=== PATIENT | male | born 2000 | race Caucasian/White ===

== ENCOUNTER 2024-07-14 09:24 | Emergency (ER) | payer OTHER, SELFPAY ==
--- NOTE | 2024-07-14 09:26 | ED.URI ---
HPI - URI/Sore Throat General Chief Complaint: Upper Respiratory Infection Stated Complaint: headache/ sore throat Time Seen by Provider: 07/14/24 09:26 Source: patient Mode of arrival: ambulatory Limitations: no limitations History of Present Illness HPI Narrative: Edil is a 23-year-old male patient presenting to the clinic today with complaints of sore throat, runny nose, sinus congestion, sinus pain, and headache x1.5 weeks. He reports he is blowing out dark yellow nasal drainage. No fevers, chills, or body aches. MD elicited complaint: sore throat, rhinorrhea, nasal congestion and sinus pain Related Data Allergies Allergy/AdvReac Type Severity Reaction Status Date / Time No Known Allergies Allergy Verified 07/14/24 09:34 Review of Systems Review of Systems: Pertinent positives per HPI. Patient denies any fever, chills, rash, visual changes, dizziness, shortness of breath, chest pain, palpitations, nausea, vomiting, diarrhea, constipation, abdominal pain, or any urinary issues. PMFSH Surgical History Surgical History History of surgery on arm Family History Family History Grandparent Diabetes mellitus Hypertension Grandparent Diabetes mellitus Hypertension Heart disease Cerebrovascular accident Social History Social History Smoking status: Never smoker Lack of Transportation: No Lack of Food: Never True Current Housing: I Have Housing Concerned About Future Housing: No Difficulty Paying Gas/Electric Bills: No Difficulty Paying for Meds: No Currently Unemployed: No Education: High School Diploma/GED Difficulty w/ Childcare or Family Care: No Comments At the time of my signature, I reviewed and agree with the nursing past medical, surgical, social, and family history. There is no relevant family history pertinent to the patient complaint. Exam Narrative: General: Well-developed, well nourished, in no apparent distress Head: Normocephalic, atraumatic Eyes: Pupils equally round and reactive to light bilaterally, EOM intact, sclera and conjunctive clear, no discharge, lids normal Ears: TMs intact and congested, ear canals clear, no drainage, grossly hearing normal. Nose: Nares patent, thick yellow nasal discharge, severe inflammation, maxillary sinus tenderness. Mouth: Oral pharynx without lesions or masses, good dentition, MMM. Neck: Supple, trachea midline, no enlargement of anterior or posterior cervical nodes, no thyroid masses or goiter palpable. Cardio: Regular rate and rhythm, s1 and s2 normal, no murmur appreciated. Resp: Clear to auscultation bilaterally, no rhonchi, rales, wheezing or rubs Course Course Emergency Course: Portions of this record may have been created with voice recognition software. Level of Care: Express Care Visit Vital Signs Vital signs: Vital signs reviewed MDM - URI/Sore Throat MDM Narrative Medical decision making narrative: At the time of visit patient is resting comfortably on the exam table. Patient appears to be nontoxic. Plan: I suspect patient has bacterial rhinosinusitis. Prescription for Augmentin and prednisone was sent to the pharmacy. Supportive measures were discussed with the patient and they voiced understanding discharge instructions and agrees to treatment plan. Return precautions reviewed Differential Diagnosis Differential diagnosis: Likely upper respiratory infection, otitis media, sinusitis, viral infection, bronchitis, influenza, pharyngitis and other (COVID) Discharge Plan Discharge Clinical Impression: Acute bacterial rhinosinusitis Patient Disposition: Home, Self-Care Condition: Stable Instructions: Antibiotic Form, Rhinosinusitis (ED) Additional Instructions: Take prescription medications only as prescribed-Augmentin and prednisone Increase fluids and stay well hydrated Tylenol/motrin for pain/fever Flonase and OTC antihistamines as directed Vicks vapor rub to open sinuses Sinus rinses for congestion Cepacol spray, cough drops, throat lozenges, warm tea with honey/lemon, gargle salt water to soothe throat BRAT diet for diarrhea Clear liquids x 24 hours then advance as tolerated for nausea/vomiting Go to the ED if you develop a worsening in your condition- high fever not controlled by Tylenol or Motrin, dehydration, weakness, lethargy, shortness of breath, or chest pain. Follow up with your PCP in 3-5 days if symptoms persist. Patient Language: Gibraltarian Prescriptions: New prednisone 20 mg tablet 40 mg PO DAILY 5 Days Qty: 10 0RF amoxicillin-pot clavulanate 875-125 mg tablet 1 tablet PO Q12H 10 Days Qty: 20 0RF Follow-up/Referrals: UNKNOWN,DOCTOR [Non-Staff] - Time of Disposition: 09:38 Quality NIHSS Nursing Documentation ED NIHSS nursing documentation: reviewed/agree
[2024-07-14 09:33] VITALS: BP 119/73; PULSE 88; RESP 18; TEMP 37.1; O2SAT 100
--- OUTSIDE RECORDS SUMMARY | 2024-07-21 11:41 | XMS_ITS | Encounter Summary ---
Author Organization [facility] Address [address] [place] [address] Care Team Providers Care Energy And Sustainability Manager Name Role Phone Heath Bello MD Primary Care Provider [phone] Reason for Visit * Reason Comments Complete Physical Exam Encounter Details Date Type Department Care Team (Late st Contact Info) Description 05/01/2010 3:30 PM CDT Office Visit [facility] - Pediatrics [address] [place] [address] Elana Nogueira MD [address] [place] [address] Well child visit (Primary Dx) Social History Tobacco Use Types Packs/Day Years Used Date Smoking Tobacco: Never Assessed Sex and Gender Information Value Date Recorded Sex Assigned at Not on file Gender Identity Not on file Sexual Orientation Not on file documented as of this encounter Last Filed Vital Signs Vital Sign Reading Time Taken Comments Blood Pressure 92/58 05/01/2010 3:52 PM CDT Pulse - - Temperature 37.4 ??C (99.4 ??F) 05/01/2010 3:52 PM CD T Respiratory Rate - - Oxygen Saturation - - Inhaled Oxygen Concentration - - Weight 23.3 kg (51 lb 6.4 oz) 05/01/2010 3:52 PM CDT Height 125.1 cm (4' 1.25 ) 05/01/2010 3:52 PM CD T Body Mass Index 14.9 05/01/2010 3:52 PM CDT Body Mass Index Percentile 29.33% 05/01/2010 3:5 2 PM CDT Growth Chart: [facility] (Boys, 2-2 0 Years) documented in this encounter Patient Instructions * Patient Instructions* Elana Nogueira MD - 05/01/2010 4:26 PM CDT BP 92/58 Temp(Src) 99.4 ??F (Temporal artery) Wt 51 lb 6.4 oz (23.315 kg) 36.06% of growth percentile based on ebihqb-mau-fpk. 47.44% of growth percentile based on rdkbnfa-sdl-vhl. Normalized head circumference data available only for age 0 to 36 months. documented in this encounter Progress Notes * Elana Nogueira MD - 05/02/2010 11:13 PM CDT 7-10 Year Old Well Airport Operations Crew Member Visit Name: PRAKASH HANNA Age: 9 y.o. Accompanied By: Mother, Brother(s), Sister(s) Concerns: Chief Complaint Patient presents with ??? Complete Physical Exam Diet: Eats well balanced meals, good variety: Yes Limits foods high in fat or calorie content: Yes BM: Nl bowels movements: Yes Voiding: Any voiding difficulties: No School: Doing well in school. 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 Illnesses since our last visit include: none Allergies: No Known Allergies Medicines: No current outpatient prescriptions on file. PE: OBJECTIVE: BP 92/58 Temp(Src) 99.4 ??F (Temporal artery) Wt 51 lb 6.4 oz (23.315 kg) Normalized head circumference data available only for age 0 to 36 months. 36.06% of growth percentile based on ugkrtm-ykf-beu. 47.44% of growth percentile based on lomexyy-mny-lht. GENERAL: Alert, well developed, well nourished SKIN: No rash or lesions HEAD: Normocephalic EYES: PERRL, EOMI, funduscopic normal EARS: TM's WNL, canals clear NOSE: Passages clear MOUTH: OP clear, dentition appropriate, no oral lesions or excessive dental caries NECK: Thyroid not enlarged, lymph nodes WNL LUNGS: CTA bilaterally HEART: RRR without murmur ABD: Soft, NT,ND, NABS, no mass or HSM EXT: MAEW, FROM, no C/C/E, pulses 2+ NEURO: Alert, nl tone and reflexes for age, age appropriate gait : Nl male, age appropriate, no lesions, no hernia Impression / Plan: 1. Well child with normal growth and development. Oral and written anticipatory guidance provided including well child information, nutrition, well balanced diet, safety,and general well children's librarian. Limit TV and video/computer game time. Encourage routine exercise. Parent instructed to call if any questions, concerns, problems or other health issues. Plan per orders. Immunizations are up to date. Recommend flu vaccine, declined at this time. Immunizations benefits and risks discussed including site soreness, fever and allergic reaction. Next Appointment: 1 year documented in this encounter Plan of Treatment Not on file documented as of this encounter Visit Diagnoses Diagnosis Well child visit- Primary Routine infant or child health check documented in this encounter Care Teams Energy And Sustainability Manager Relationship Specialty Start Date End Date Heath Bello MD [address] [address] PCP - General 07/24/09 03/03/20 documented as of this encounter
--- OUTSIDE RECORDS SUMMARY | 2024-07-21 11:41 | XMS_ITS | Encounter Summary ---
Author Organization [facility] Address [facility] [place] [address] Care Team Providers Care People Manager Name Role Phone Heath Bello MD Primary Care Provider [phone] Reason for Visit * Reason Comments Complete Physical Exam 13 y/o check up School Physical Encounter Details Date Type Department Care Team (Late st Contact Info) Description 02/04/2014 1:00 PM CDT Office Visit [facility] Medical [facility] - Pediatrics [address] [place] [address] Elana Nogueira MD [address] [address] [place], [place] [id number] Well child visit (Primary Dx); Need for prophylactic vaccination with combined wimesqpslc-lqoiqrt-nr rtussis (DTP) vaccine; Need for prophylactic vaccination and inoculation against other specified disease Social History Tobacco Use Types Packs/Day Years Used Date Smoking Tobacco: Never Alcohol Use Standard Drinks/Week Comments Not Asked 0 (1 standard drink = 0.6 oz pur e alcohol) Sex and Gender Information Value Date Recorded Sex Assigned at Not on file Gender Identity Not on file Sexual Orientation Not on file documented as of this encounter Last Filed Vital Signs Vital Sign Reading Time Taken Comments Blood Pressure 90/60 02/04/2014 1:21 PM CDT Pulse - - Temperature 37.2 ??C (99 ??F) 02/04/2014 1:21 PM CDT Respiratory Rate - - Oxygen Saturation - - Inhaled Oxygen Concentration - - Weight 34.5 kg (76 lb 2 oz) 02/04/2014 1:21 PM C DT Height 144.8 cm (4' 9 ) 02/04/2014 1:21 PM CDT Body Mass Index 16.47 02/04/2014 1:21 PM CDT Body Mass Index Percentile 32.44% 02/04/2014 1:2 1 PM CDT Growth Chart: CDC (Boys, 2-2 0 Years) documented in this encounter Patient Instructions * Patient Instructions* Elana Nogueira MD - 02/04/2014 1:29 PM CDT BP 90/60 Temp(Src) 99 ??F (Temporal) Wt 34.53 kg (76 lb 2 oz) BMI 16.47 kg/m2 33%ile (Z=-0.44) based on CDC 2-20 Years bfhsbi-scg-hdr data using vitals from 02/04/2014. 47%ile (Z=-0.08) based on CDC 2-20 Years yfkwjof-eng-dey data using vitals from 02/04/2014. Normalized head circumference data available only for age 0 to 36 months. documented in this encounter Progress Notes * Elana Nogueira MD - 02/04/2014 6:33 PM CDT 11-12 Year Old Well Skates Operator Visit Name: Edil Hanna Age: 13 y.o. Accompanied By: Mother, Brother(s), Sister(s) Concerns: Chief Complaint Patient presents with ??? Complete Physical Exam 13 y/o check up ??? 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 Illnesses since our last visit include: none Allergies: No Known Allergies Medicines: No current outpatient prescriptions on file. No current facility-administered medications for this visit. PE: OBJECTIVE: BP 90/60 Temp(Src) 99 ??F (Temporal) Wt 34.53 kg (76 lb 2 oz) BMI 16.47 kg/m2 33%ile (Z=-0.44) based on CDC 2-20 Years ivzheq-dij-bos data using vitals from 02/04/2014. 47%ile (Z=-0.08) based on CDC 2-20 Years dxtdqqo-vsq-wdi data using vitals from 02/04/2014. GENERAL: Alert, well developed, well nourished SKIN: [...] EXT: MAEW, FROM, no C/C/E, pulses 2+ BACK: No scoliosis NEURO: Alert, nl tone and reflexes for age, age appropriate gait : Nl male, age appropriate, no lesions, no hernia, Aidan II Impression / Plan: 1. Well child with normal growth and development. Oral and written anticipatory guidance provided including well child information, nutrition, well balanced diet, safety,and general well children's lunchroom supervisor. Limit TV and video/computer game time. Encourage routine exercise. Parent instructed to call if any questions, concerns, problems or other health issues. Plan per orders. Tdap, Menactra Immunizations benefits and risks discussed including site soreness, fever and allergic reaction. Next Appointment: 1 year * Galina Murillo MA - 02/04/2014 1:23 PM CDT Has your child experienced any of the following symptoms in the past year: Productive cough for more than 3 weeks no Coughing up blood no Unexplained weight loss no Fever, chills, or night sweats for no known reason no Persistent shortness of breath no Unexplained fatigue or tiredness no Chest pain no Has your child had contact with anyone with active tuberculosis disease in the past year? no Has your child been outside of the country within the past year? no If so, where? Is your child required to have a TB skin test? no If so, by whom? documented in this encounter Plan of Treatment Not on file documented as of this encounter Visit Diagnoses Diagnosis Well child visit- Primary Routine infant or child health check Need for prophylactic vaccination with combined aepzziszkj-fetwolz-bazroetyn (DTP) vaccine Need for prophylactic vaccination and inoculation against other specified disease documented in this encounter Care Teams People Manager Relationship Specialty Start Date End Date Heath Bello MD [address] [facility] [place] [id number] PCP - General 07/24/09 03/03/20 documented as of this encounter
--- OUTSIDE RECORDS SUMMARY | 2024-07-21 11:41 | XMS_ITS | Encounter Summary ---
Author Organization [facility] Address [address] [facility] [place] [address] Care Team Providers Care Template Layout Worker Name Role Phone Heath Bello MD Primary Care Provider [phone] Encounter Details Date Type Department Care Team (Latest Contact Info) Description 07/25/2009 12:01 AM VISUAL COORDINATOR - 07/25/2009 11:59 PM [facility] Hospital Encounter CG DEFAULT [address] [facility] [place] [address] Danny Agarwal MD [address] [place] [address] [address] [place] [address] Orthopedics Discharge Disposition: Home or Self Care Social History Tobacco Use Types Packs/Day Years Used Date Smoking Tobacco: Never Assessed Sex and Gender Information Value Date Recorded Sex Assigned at Not on file Gender Identity Not on file Sexual Orientation Not on file documented as of this encounter Progress Notes * Vinicius Contreras MD - 07/25/2009 12:00 AM [facility] Pediatric Orthopaedic Consultation Edil is a 8-year-old male who approximately 4 weeks ago underwent closed reduction and percutaneouspinning of a left supracondylar humerus fracture. He was placed into a long-arm cast and has been doing well since then. He presents back today with no numbness, tingling, fevers or chills for examination and cast removal. PHYSICAL EXAMINATION: Cast was removed. His skin was intact. The pins were in good condition. The pins were removed without any complication. They were placed into a sterile dressing. He has positive AIN PIN. He can flex and extend about the wrist and he has intact intrinsic muscles of the hand. He has no sensory deficit. He is a +2 radial ulnar pulse. X-RAYS: AP and lateral views of the left elbow. These were taken prior to removal and show the two K-wires with good fixation of the fracture. There is abundant fracture. Callus noted anteriorly and posteriorly. The alignment is excellent. ASSESSMENT AND PLAN: Four weeks status post closed reduction percutaneous pinning of left supracondylar humerus fracture. PLAN: At this time we removed the pins the patient was left out of a cast. He was placed into a sling andexplained that he should take it easy and not do any strenuous, physical activity. We did caution his mom that there is approximately a 6-month risk of refracture. We will plan on seeing him back in three weeks' time. At that time we had the AP and lateral views of the left elbow. I have personally seen and evaluated the above patient with the resident. I have discussed the results of the physical exam and all studies with the patient and family. I developed the above plan ofcare and discussed it with the patient. I have revised the above dictation and agree with the resident's assessment and plan of care. Dictated By: VINICIUS CONTRERAS MD Dictated For: DANNY AGARWAL MD Electronically Signed 10/25/2009 08:57:24 CDT CDM/MedQ JOB ID: [id number] cc: HEATH BELLO MD documented in this encounter Plan of Treatment Scheduled Orders Name Type Priority Associated Diagnoses Orde r Schedule XR ELBOW 2 VW LEFT Imaging Routine ONCE f or 1 Occurrences starting 07/25/2009 until 07/25/2009, 1 completed documented as of this encounter Procedures Procedure Name Priority Date/Time Associated Diagnosis Comments XR ELBOW LEFT 2VW Routine 07/25/2009 8:1 7 AM VISUAL COORDINATOR Closed Fracture of Supracondylar Humerus documented in this encounter Results * XR ELBOW 2 VW LEFT (07/25/2009 8:17 AM VISUAL COORDINATOR) Anatomical Region Laterality Modality Upper Extremity Other 07/25/2009 8:17 AM VISUAL COORDINATOR Narrative 07/25/2009 4:10 PM VISUAL COORDINATOR Exam- Left elbowS AP, lateral and oblique views History- Supracondylar humerus fracture Findings- The transcondylar distal humeral fracture is seen and the fixation pins remain place. Callus formation and periosteal reaction. The fracture fragments are in anatomical alignment. No soft tissue swelling is seen. Impression- Healing distal humeral fracture. Norberto Larson MD (resident). ? Reading Radiologist- NEGRITO HENDRICKS MD ? Releasing Radiologist- NEGRITO HENDRICKS MD ? Released Date Time- 07/25/09 1611 ? Marketing Communications Leader- STEFF LARSON MD ? ADM- RACHEL,DANNY S ?ATT- RACHELDANNY S ORD- RACHELDANNY S ?CON- PCP- HEATH BELLO ? SCP- Procedure Note Amari Hendricks MD - 07/25/2009 Exam- Left elbowS AP, lateral and oblique views History- Supracondylar humerus fracture Findings- The transcondylar distal humeral fracture is seen and the fixation pins remain place. Callus formation and periosteal reaction. The fracture fragments are in anatomical alignment. No soft tissue swelling is seen. Impression- Healing distal humeral fracture. Norberto Larson MD (resident). Reading Radiologist- NEGRITO HENDRICKS MD Releasing Radiologist- NEGRITO HENDRICKS MD Released Date Time- 07/25/09 1611 Marketing Communications Leader- STEFF LARSON MD - DANNY AGARWAL ATT- DANNY AGARWAL ORD- DANNY AGARWAL CON- PCP- HEATH BELLO SCP- Danny Agarwal MD DIAGNOSTIC IMAGING O RDERABLES documented in this encounter Visit Diagnoses Diagnosis Closed fracture of supracondylar humerus documented in this encounter Care Teams Template Layout Worker Relationship Specialty Start Date End Date Heath Bello MD [address] [place] [address] PCP - General 07/24/09 03/03/20 documented as of this encounter
--- OUTSIDE RECORDS SUMMARY | 2024-07-21 11:41 | XMS_ITS | Encounter Summary ---
Author Organization [facility] Address [address] [facility] [place] [address] Care Team Providers Care Regional Sales Director Name Role Phone Heath Bello MD Primary Care Provider [phone] Reason for Visit * Reason Comments Well Child Check 14 year Encounter Details Date Type Department Care Team (Late st Contact Info) Description 01/21/2015 2:30 PM CDT Office Visit [facility] Medical [facility] - Pediatrics [address] [facility] [address] [place] [address] Elana Nogueira MD [address] [facility] [address] [place] [address] Well child visit (Primary Dx); Atypical nevi Social History Tobacco Use Types Packs/Day Years [...] Sign Reading Time Taken Comments Blood Pressure 108/72 01/21/2015 2:40 PM CDT Pulse - - Temperature 36.7 ??C (98.1 ??F) 01/21/2015 2:40 PM CD T Respiratory Rate - - Oxygen Saturation - - Inhaled Oxygen Concentration - - Weight 40.9 kg (90 lb 3.2 oz) 01/21/2015 2:40 PM CDT Height 152.4 cm (5') 01/21/2015 2:40 PM CDT Body Mass Index 17.62 01/21/2015 2:40 PM CDT Body Mass Index Percentile 43.47% 01/21/2015 2:4 0 PM CDT Growth Chart: [facility] (Boys, 2-2 0 Years) documented in this encounter Patient Instructions * Patient Instructions* Massiel Bañuelos - 01/21/2015 2:41 PM CDT YOUR GROWING CHILD: 12 TO 14 YEARS Child???s Name: Edil Hanna Today???s Date: 01/21/2015 BP 108/72 mmHg Temp(Src) 98.1 ??F (Temporal) Wt 40.914 kg (90 lb 3.2 oz) BMI 17.62 kg/m2 Wt Readings from Last 1 Encounters: 01/21/15 40.914 kg (90 lb 3.2 oz) (44 %*, Z = -0.14) * Growth percentiles are based on CDC 2-20 Years data. 44%ile (Z=-0.14) based on CDC 2-20 Years xbaidl-uyk-kde data using vitals from 01/21/2015. Ht Readings from Last 1 Encounters: 01/21/15 1.524 m (5') (57 %*, Z = 0.16) * Growth percentiles are based on CDC 2-20 Years data. 57%ile (Z=0.16) based on CDC 2-20 Years dgckxjw-zlq-rpo data using vitals from 01/21/2015. IMMUNIZATIONS One of the best ways to insure continued good health for your child is through a program of regularimmunizations. Many contagious diseases have now been controlled by immunizations. We routinely immunize children at the time of their regular checkups. It is important for you to keep a record of all immunizations given. This information will be of value to you in the care of your child in the future. We will provide you a copy of your immunization record at each of your visits. WHAT TO EXPECT Talk with your child after school about their day, what they liked, what they didn???t like, and ifthey have any concerns. Talk with your child about what to do if they or someone they know is beingbullied. It???s a good idea to give your child chores to do around the house. Some age appropriate chores include: 1. Wash dishes 2. Prepare simple family meals 3. [place] leaves 4. Take the trash out for pick-up 5. Be responsible for feeding and watering the family pet 6. Keep bedroom and designates room in house clean 7. Vacuum individual rooms 8. Be responsible for homework Limit TV and electronic device time to 5-6 hours a day. Make sure that your child is active for at least 3 hours a day. Talk to your child about not using cigarettes, using drugs, or drinking alcohol. Make sure that youare familiar with the friends that they are spending time with. Teach your child the importance of delaying sexual behavior and make sure they know that they can ask you any questions that they make have about sexual behaviors. SAFETY POISON CONTROL: (PLEASE POST IN YOUR HOME OR ON YOUR PHONE) There are three ingredients for childhood injuries and accidents: the child, the object, and the environment in which the injury happens. Therefore, you must be aware of all three. Continue to be aware of poisonous hazards in your home, basement, and garage. Establish a plan for leaving the house in case of fire. Alert your children to be careful around strange animals, and to not bother any animal that is eating. Children should now know their name, address, and telephone number. Remind your child about not accepting rides or food from strangers. Helmets should be worn for anything that your child rides on that has wheels or could possibly fallout of or off of including but not limited to: bikes, skates, skate boards, scooters, horses, pogo sticks, etc. CAR SEATS Children should stay in a booster seat until adult belts fit correctly (usually when a child reaches about 4' 9 in height and is between 8 and 12 years of age). [place] law, effective March 07, 2006, says your child must be in a booster seat if they are ages 4 through 7 who weigh at least 40 pounds, unless they are 80 pounds or 4???9?? tall. BE SURE THE FAMILY RULE REGARDING CAR RESTRAINTS FOR ALL PASSENGERS IS ALWAYS OBEYED AND THAT YOUR CHILD IS IN AN APPROVED CAR SEAT. MAKE SURE YOUR CHILD IS SECURED IN THE CAR SEAT AND JUST IMPORTANTLY, MAKE SURE THE CAR SEAT IS PROPERLY SECURED IN THE CAR. DO NOT ALLOW ANYONE TO SMOKE AROUND YOUR CHILD. DIET Make sure that your child is eating breakfast in the morning preschool lead teacher. Encourage them to eat at least 3 servings of dairy a day and at least 5 serving of vegetables/fruits per day. Limit candy, soft drinks, and other high fat/calorie food and snacks. TEETH Your child should be established and receiving regular check-ups with a dentist. A daily routine ofbrushing at least twice a day needs to be in place by now. Frequently your child may need some supervision for proper technique. Also, your child should be flossing at least once daily. SLEEP Make sure that your child is getting at least 8-10 hours of sleep a night. Where can I go for more information? [place] [employer] ( ) www.aap.org, HealthyChildren.org www.healthychildren.org Website and free downloadable jonelle for smartphones: http://www.StreetOwl/ and http://www.Funambol/ documented in this encounter Progress Notes * Elana Nogueira MD - 01/21/2015 9:25 PM CDT 11-12 Year Old Well Airline Flight Attendant Visit Name: Edil Hanna Age: 14 y.o. Accompanied By: Mother, Father, Brother(s), Sister(s) Concerns: Chief Complaint Patient presents with ??? Well Child Check 14 year Diet: Eats well balanced meals, good variety: Yes Limits foods high in fat or calorie content: Yes BM: Nl bowels movements: Yes Voiding: Any voiding difficulties: No School: Grade in school: fall baseball Interim Illness: The patient returns today for routine well child care lead teacher. Illnesses since our last visit include: none Allergies: No Known Allergies Medicines: No current outpatient prescriptions on file. No current facility-administered medications for this visit. PE: OBJECTIVE: BP 108/72 mmHg Temp(Src) 98.1 ??F (Temporal) Wt 40.914 kg (90 lb 3.2 oz) BMI 17.62 kg/m2 44%ile (Z=-0.14) based on CDC 2-20 Years tkcypu-joq-bid data using vitals from 01/21/2015. 57%ile (Z=0.16) based on CDC 2-20 Years cdwsjej-fmi-dhk data using vitals from 01/21/2015. GENERAL: Alert, well developed, well nourished SKIN: cattered hyperpigment nevi on neck/trunk. 3 mm hyperpigmented flat nevi on neck with irregular discoloration HEAD: Normocephalic EYES: PERRL, EOMI, funduscopic normal [...] nutrition, well balanced diet, safety,and general well child care lead teacher. Limit TV and video/computer game time. Encourage routine exercise. Parent instructed to call if any questions, concerns, problems or other health issues. Plan per orders. Immunizations are up to date. Vision screen passed bilaterally. Immunizations benefits and risks discussed including site soreness, fever and allergic reaction. 2. Nevi - refer to Dermatology for evaluation. Mom to set up appointment. Next Appointment: 1 year documented in this encounter Plan of Treatment Not on file documented as of this encounter Goals Goal Patient Goal Type Associated Problems Recent Progress Patient-Stated? Author Use safety retraint in car Lifestyle On track( 019 1:39 PM CDT) No Massiel Quintanilla documented as of this encounter Visit Diagnoses Diagnosis Well child visit- Primary Routine or child health check Atypical nevi Benign neoplasm of skin, site unspecified documented in this encounter Care Teams Regional Sales Director Relationship Specialty Start Date End Date Heath Bello MD [address] [address] PCP - General 07/24/09 03/03/20 documented as of this encounter
--- OUTSIDE RECORDS SUMMARY | 2024-07-21 11:41 | XMS_ITS | Encounter Summary ---
Author Organization [facility] Address [address] [place] [address] Care Team Providers Care School Vocational Educator Name Role Phone Heath Bello MD Primary Care Provider [phone] Elana Nogueira MD Unavailable [phone] Encounter Details Date Type Department Care Team (Late st Contact Info) Description 07/02/2009 [facility] Outpatient Visit [address] [address] Danny Agarwal MD [address] [place] [address] 1 [place] [address] Social History Tobacco Use Types Packs/Day Years Used Date Smoking Tobacco: Never Assessed Sex and Gender Information Value Date Recorded Sex Assigned at Not on file Gender Identity Not on file Sexual Orientation Not on file documented as of this encounter Plan of Treatment Not on file documented as of this encounter Visit Diagnoses Not on filedocumented in this encounter Care Teams School Vocational Educator Relationship Specialty Start Date End Date Heath Bello MD [address] [address] PCP - General 07/24/09 03/03/20 Elana Nogueira MD [address] [place] [address] [address] [place] [address] PCP - Attributed-[employer] 06/10/19 0 documented as of this encounter
--- OUTSIDE RECORDS SUMMARY | 2024-07-21 11:41 | XMS_ITS | Encounter Summary ---
Author Organization [facility] Address [facility] [facility] [place] [address] Care Team Providers Care Internal Affairs Commander Name Role Phone Heath Bello MD Primary Care Provider [phone] Reason for Visit * Reason Comments Cough x 3-4 wks Runny Nose with yellow drainage Congestion x 3-4 wks Encounter Details Date Type Department Care Team (Late st Contact Info) Description 11/19/2011 3:15 PM CDT Office Visit [facility] Medical [facility] - Pediatrics [address] [place] [phone] Heath Bello MD [address] [address] Sinusitis acute (Primary Dx); Cough Social History Tobacco Use Types Packs/Day Years Used Date Smoking Tobacco: Never Assessed Sex and Gender Information Value Date Recorded Sex Assigned at Not on file Gender Identity Not on file Sexual Orientation Not on file documented as of this encounter Last Filed Vital Signs Vital Sign Reading Time Taken Comments Blood Pressure - - Pulse 99 11/19/2011 3:45 PM CDT Temperature 38.1 ??C (100.6 ??F) 11/19/2011 3:45 PM C DT Respiratory Rate - - Oxygen Saturation 98% 11/19/2011 3:45 PM CDT Inhaled Oxygen Concentration - - Weight 27.4 kg (60 lb 6 oz) 11/19/2011 3:45 PM C DT Height 132.7 cm (4' 4.25 ) 11/19/2011 3:45 PM CD T Body Mass Index 15.55 11/19/2011 3:45 PM CDT Body Mass Index Percentile 34.60% 11/19/2011 3:4 5 PM CDT Growth Chart: [facility] (Boys, 2-2 0 Years) documented in this encounter Progress Notes * Heath Bello MD - 11/19/2011 4:03 PM CDT Sick Visit Name: Edil Hanna Age: 11 y.o. Accompanied By: Mother CC: Chief Complaint Patient presents with ??? Cough x 3-4 wks ??? Runny Nose with yellow drainage ??? Congestion x 3-4 wks HPI: Cough and congestion, runny nose started early October. Was getting better and now worse . Worsened 2 wks ago and much worse x 1 wk. Frontal GUERRA. Yellow drainage. Hm=337.6 here. Cough is productivebut does not spit it out. Current Medications: Current Outpatient Prescriptions Medication Sig Dispense Refill ??? Ucsffjrdgrfsm-FG-IU-APAP (SUDAFED PE COLD/COUGH PO) ??? Acetaminophen (TYLENOL PO) Allergies: No Known Allergies PE: Pulse 99 Temp(Src) 100.6 ??F (Temporal) Wt 60 lb 6 oz (27.386 kg) BMI 15.55 kg/m2 General alert, cooperative, no distress Skin Skin color, texture, turgor normal. No rashes or lesions Head NCAT w/o lesions or tenderness Eyes/Ears sclera and conjunctiva clear bilateral TM's and external ear canals normal Nose/ Throat nose:purulent rhinorrhea, mucosal erythema and mucosal edema and congestion, throat: no erythema or exudates noted. Teeth and gums normal Neck supple, non-tender, with full ROM, and no lymphadenopathy Nodes no lymphadenopathy Heart regular rate and rhythm, S1, S2 normal, no murmur, click, rub or gallop Lungs clear to auscultation bilaterally Abdomen soft, non-tender, non distended, normal BS Extremities no cyanosis, edema Impression / Plan: 1. Sinusitis - Zithromax 300 mg po today then 150 mg po q d x 4 days. Symptomatic treatment, tylenol and/or ibuprofen as directed for weight and age prn, cool mist humidifier. Phenergan DM 1 tsp po q6 hours prn, DC if any side effects. Call if symptoms worsen, persist, or any signs or symptoms of r espiratory distress. DC any OTC cough/cold meds. documented in this encounter Plan of Treatment Not on file documented as of this encounter Visit Diagnoses Diagnosis Sinusitis acute- Primary Acute sinusitis, unspecified Cough documented in this encounter Care Teams Internal Affairs Commander Relationship Specialty Start Date End Date Heath Bello MD [address] [place] [address] PCP - General 07/24/09 03/03/20 documented as of this encounter
--- OUTSIDE RECORDS SUMMARY | 2024-07-21 11:41 | XMS_ITS | Encounter Summary ---
Author Organization [facility] Address [facility] [facility] [place] [address] Care Team Providers Care Diesel Retrofit Installer Name Role Phone Heath Bello MD Primary Care Provider [phone] Reason for Visit * Reason Onset Date Comments Ear Problem 01/18/2013 Encounter Details Date Type Department Care Team (Late st Contact Info) Description 01/18/2013 Telephone [facility] - Pediatrics [address] [place] [phone] Karuna Sparks, ATILIO-LASER BEAM COLOR SCANNER OPERATOR [address] [place] [address] Ear Problem Social History Tobacco Use Types Packs/Day Years Used Date Smoking Tobacco: Never Assessed Sex and Gender Information Value Date Recorded Sex Assigned at Not on file Gender Identity Not on file Sexual Orientation Not on file documented as of this encounter Miscellaneous Notes * Addendum Note - Apoorva Pimentel LPN - 01/19/2013 1:26 PM CDTAddended by: APOORVA PIMENTEL on: 01/19/2013 01:26 PM Modules accepted: Orders, Medications * Telephone Encounter - Apoorva Pimentel LPN - 01/19/2013 1:25 PM CDT Call received from [facility] pharmacy. Ciprodex has a $130 co pay. Mom requesting something that would becheaper. Verbal authorization given to change to Floxin otic. * Telephone Encounter - Justino Webb RN - 01/18/2013 9:50 AM CDT Mom states that pt was swimming all weekend, now c/o left ear pain, pt c/o pain when outer ear is touched. Advised sx consistent with swimmers ear. Per standing orders Ciprodex otic drops sent to pharmacy. Encouraged to call with persistent or worsening sx. documented in this encounter Plan of Treatment Not on file documented as of this encounter Visit Diagnoses Not on filedocumented in this encounter Care Teams Diesel Retrofit Installer Relationship Specialty Start Date End Date Heath Bello MD [address] [address] PCP - General 07/24/09 03/03/20 documented as of this encounter
--- OUTSIDE RECORDS SUMMARY | 2024-07-21 11:41 | XMS_ITS | Encounter Summary ---
Author Organization [facility] Address [address] [facility] [place] [address] Care Team Providers Care Piecer Up Name Role Phone Heath Bello MD Primary Care Provider [phone] Reason for Visit * Reason Onset Date Comments Behavioral Problem 01/26/2018 Encounter Details Date Type Department Care Team (Late st Contact Info) Description 01/26/2018 Telephone [facility] - Pediatrics [address] [place] [address] Elana Nogueira MD [address] [place] [address] [address] [place] [address] Behavioral Problem Social History Tobacco Use Types Packs/Day [...] encounter Miscellaneous Notes * Addendum Note - Heath Bello MD - 02/07/2018 5:33 PM CDTAddended by: HEATH BELLO on: 02/07/2018 05:33 PM Modules accepted: Orders * Telephone Encounter - Elana Nogueira MD - 01/31/2018 6:08 PM CDT Spoke with Mom, discussed in detail regarding school assessment for school difficulties. Patient appears to struggle most with attention span and anxiety. As explained to Mom, unsure if patient gets anxious and then looses his concentration or if unable to focus which then leads to anxiety. Since he struggles academically, would recommend starting medicine for ADD for one month to see if any better. Discussed potential side effects including decreased appetite, headache, abdominal pain, and mood lability. Mom agrees and would like to start patient on medicine. Family leaving for [place] in the morning for vacation. Will wait until February 08 to start patient on medicine. * Telephone Encounter - Kathy Machado RN - 01/26/2018 10:25 AM CDT Pt's mother e-mailed triage with a social-emotional screener report from his school. I have scannedinto chart for review. Please advise on the next step. Mom was hoping to discuss at his well child check, but her dad had urgent surgery and she couldn't be at the appointment. She said you can call her at [phone] or contact her anytime by e-mail at [email or web address] documented in this encounter Plan of Treatment Not on file documented as of this encounter Goals Goal Patient Goal Type Associated Problems Recent Progress Patient-Stated? Author Use safety retraint in car Lifestyle On track( 019 1:39 PM CDT) No Massiel Quintanilla documented as of this encounter Visit Diagnoses Not on filedocumented in this encounter Care Teams Piecer Up Relationship Specialty Start Date End Date Heath Bello MD [address] [address] PCP - General 07/24/09 03/03/20 documented as of this encounter
--- OUTSIDE RECORDS SUMMARY | 2024-07-21 11:41 | XMS_ITS | Clinical Summary ---
Author Organization [facility] Address [address] [place] [address] Care Team Providers Care Assisted Living Executive Director Name Role Phone Unavailable Primary Care Provider Unavailabl e Source Comments [facility],non-owned Affiliates and Associated Physician Practices is amultiple site organization consisting of ambulatory clinics and hospital sitesin [place], [place], [place] and [place]. This disclosure is being madepursuant to the Care Everywhere program and may not contain all information available regarding this patient. Last updated 18.[facility] Allergies No known active allergies Medications Be aware that medications may not be up to date on this document. Always verify current medications with the patient. No known medications Active Problems Problem Noted Date Diagnosed Date Screening for condition 01/04/2012 Overview (04/10/2015): Lipid Profile 01/04/12 TC 184 HDL 77 TRG 53 LDL 96 GLU 82 Well child visit 05/01/2010 Overview (02/07/2019): 9 y/o 05/01/10 11 y/o 01/04/12 13yo 02/04/14 14yo 01/21/ 15yo 02/10/16 16 yo 02/09/17 18 yr 02/07/19 Resolved Problems Problem Noted Date Diagnosed Date Resolved Date Fracture of fifth metacarpal bone of right hand 10/09/2014 03/24/2017 Overview (10/14/2014): 10/09/14 Nondisplaced metaphyseal fracture distal - [facility] - Referred to ortho AOM (acute otitis media) 08/14/2012 Overview (07/22/2016): 08/14/12 Bilateral (amox) 07/22/16 Bilateral (zithromax) Acute sinusitis 11/19/2011 11/20/2014 Overview (07/22/2016): 11/19/11 Zithromax 05/20/14 Zithromax Acute pharyngitis 08/31/2010 03/24/2017 Acute URI 08/31/2010 03/24/2017 Immunizations Name Administration Dates Next Due DTaP VACCINE IM (6wk-6yrs) 01/23/2007,,04/19/2003,02/08/2003, 2002 HEP A PEDS 2 DOSE 01/22/2008,01/23/2007 HEP B VACCINE, PED/ADOL 04/19/2003,2002, HIB BOOSTER 01/10/2004,04/19/2003,02/08/2003 ,2002 INFLUENZA VACCINE 05/20/2007,06/24/2006,06/01/20 04 MENINGOCOCCAL CONJUGATE (MCV4P) 02/07/2019,02/04 MMR 01/22/2008,09/30/2003 PNEUMOCOCCAL CONJ, PEDS 04/20/2004,04/19/2003,,2002 POLIO IPV 02/08/2007,01/23/2007,09/30/2003 ,2002 PPD 01/22/2008 TDAP (7yrs+) 02/04/2014 VARICELLA 01/22/2008,09/30/2003 Social History Tobacco Use Types Packs/Day Years Used Date Smoking Tobacco: Never Alcohol Use Standard Drinks/Week Comments Not Asked 0 (1 standard drink = 0.6 oz pur e alcohol) Sex and Gender Information Value Date Recorded Sex Assigned at Not on file Gender Identity Not on file Sexual Orientation Not on file Last Filed Vital Signs Vital Sign Reading Time Taken Comments Blood Pressure 96/56 02/07/2019 1:39 PM CDT Pulse 103 07/22/2016 12:19 PM OUTDOOR LANDSCAPE ARCHITECT Temperature 37.1 ??C (98.8 ??F) 02/07/2019 1:39 PM CD T Respiratory Rate - - Oxygen Saturation 97% 07/22/2016 12:19 PM OUTDOOR LANDSCAPE ARCHITECT Inhaled Oxygen Concentration - - Weight 64.9 kg (143 lb) 02/07/2019 1:39 PM CDT Height 174.1 cm (5' 8.54 ) 02/07/2019 1:39 PM CD T Body Mass Index 21.4 02/07/2019 1:39 PM CDT Plan of Treatment Health Maintenance Due Date Last Done Comments HIV SCREENING 2017 HPV VACCINE (1 - Male 3-dose series) 2017 MENINGOCOCCAL (Group B) VACC INE (1 of 2 - Standard) 2018 HEPATITIS C SCREENING 09/19/2020 DTAP/TDAP/TD VACCINES (7 - T d or Tdap) 02/05/2024 02/04/2014, 01/23/2007, 01/10/2004, Additional history exists COVID-19 VACCINE (1 - 2023-2 5 season) 2024 INFLUENZA VACCINE (#1) 2024 7, 06/24/2006, 06/01/2004 DEPRESSION SCREENING 07/11/2024 ZOSTER VACCINE (1 of 2) 2052 HEPATITIS B VACCINE Completed 04/19/2003, 2002, 2002 HIB VACCINE Completed 01/10/2004, 04/10, 02/08/2003, Additional history exists PNEUMOCOCCAL VACCINE Completed 04/20/2004, 04/19/2003, 02/08/2003, Additional history exists MENINGOCOCCAL VACCINE Completed 02/07/2019, 014 Goals Goal Patient Goal Type Associated Problems Recent Progress Patient-Stated? Author Use safety retraint in car Lifestyle On track( 019 1:39 PM CDT) Massiel Gaytan Edil Hanna Personal/Family Self 2000 [address]NA [address] [place] [id number]
--- OUTSIDE RECORDS SUMMARY | 2024-07-21 11:41 | XMS_ITS | Encounter Summary ---
Author Organization [facility] Address [facility] [facility] [place] [address] Care Team Providers Care Dispute Resolution Analyst Name Role Phone Heath Bello MD Primary Care Provider Reason for Visit * Reason Comments Well Child Check 15 yr Encounter Details Date Type Department Care Team (Late st Contact Info) Description 02/10/2016 2:00 PM CDT Office Visit [facility] Medical [facility] - Pediatrics [address] [place] [address] Elana Nogueira MD [address] [place] [address] Encounter for routine child health examination without abnormal findings (Primary Dx) Social History Tobacco Use Types [...] Sign Reading Time Taken Comments Blood Pressure 90/68 02/10/2016 2:04 PM CDT Pulse - - Temperature 37 ??C (98.6 ??F) 02/10/2016 2:04 PM CDT Respiratory Rate - - Oxygen Saturation - - Inhaled Oxygen Concentration - - Weight 51.6 kg (113 lb 12.8 oz) 02/10/2016 2:04 PM CDT Height 163.4 cm (5' 4.33 ) 02/10/2016 2:04 PM CD T Body Mass Index 19.33 02/10/2016 2:04 PM CDT Body Mass Index Percentile 59.35% 02/10/2016 2:0 4 PM CDT Growth Chart: [facility] (Boys, 2-2 0 Years) documented in this encounter Patient Instructions * Patient Instructions* Yasmine Graves - 02/10/2016 2:04 PM CDT YOUR GROWING CHILD: 12 TO 14 YEARS Child???s Name: Edil Hanna Today???s Date: 02/10/2016 BP 90/68 mmHg Temp(Src) 98.6 ??F (Temporal) Wt 51.619 kg (113 lb 12.8 oz) BMI 19.33 kg/m2 Wt Readings from Last 1 Encounters: 02/10/16 51.619 kg (113 lb 12.8 oz) (66 %*, Z = 0.40) * Growth percentiles are based on [facility] 2-20 Years data. 66%ile (Z=0.40) based on [facility] 2-20 Years ozffxv-cuu-onm data using vitals from 02/10/2016. Ht Readings from Last 1 Encounters: 02/10/16 1.634 m (5' 4.33 ) (71 %*, Z = 0.55) * Growth percentiles are based on [facility] 2-20 Years data. 71%ile (Z=0.55) based on [facility] 2-20 Years ctrizev-tbr-irb data using vitals from 02/10/2016. IMMUNIZATIONS One of the best ways to [...] dishes 2. Prepare simple family meals 3. [place] leaves 4. Take the trash out for [...] between 8 and 12 years of age). [place] and [place] law, effective March 07, 2006, says your [...] is eating breakfast in the morning preschool aide. Encourage them to eat at least 3 [...] Where can I go for more information? [employer] ( ) www.aap.org, HealthyChildren.org www.healthychildren.org Website and free downloadable jonelle for smartphones: http://www.Fashfix/ and http://www.[employer]Arc [employer]/ documented in this encounter Progress Notes * Elana Nogueira MD - 02/12/2016 7:33 AM CDT Adolescent Well Cytology Teacher Visit Name: Edil Hanna Age: 15 y.o. Accompanied By: Mother, Sister(s) Concerns: Chief Complaint Patient presents with ??? Well Child Check 15 yr Diet: Eats well balanced meals, good variety Yes Limits foods high in fat or calorie content Yes Interim Illness: The patient returns today for routine well child support agent. Illnesses since our last visit include: none Meds: No current outpatient prescriptions on file. No current facility-administered medications for this visit. Allergies: No Known Allergies Social History: Home: lives with their family Education: 8th Grade. Fall 2015 Activities: baseball Drugs: no alcohol use no tobacco use no caffeine use Drug use: Never Sex: not sexually active Psych: No concerns for depression or suicidal ideation OBJECTIVE: BP 90/68 mmHg Temp(Src) 98.6 ??F (Temporal) Wt 51.619 kg (113 lb 12.8 oz) BMI 19.33 kg/m2 No head circumference on file for this encounter. 66%ile (Z=0.40) based on CDC 2-20 Years ubrxoz-lbj-akd data using vitals from 02/10/2016. 71%ile (Z=0.55) based on CDC 2-20 Years nbxjhdk-jxm-ezy data using vitals from 02/10/2016. Physical Exam: GENERAL: Alert, well developed, well nourished SKIN: No rash or lesions HEAD: Normocephalic EYES: PERRL, EOMI, fundi grossly normal, red reflex bilat EARS: TM's WNL, canals clear NOSE: Passages clear MOUTH: OP clear, dentition appropriate, no oral lesions or excessive denatal caries NECK: Thyroid not enlarged, nodes WNL, no mass or torticollis LUNGS: CTA bilaterally HEART: RRR without murmur ABD: Soft, NT,ND, NABS, no mass or HSM EXT: MAEW, FROM, no C/C/E, pulses 2+ BACK: No scoliosis NEURO: Alert, nl tone and reflexes for age, age appropriate gait : Nl male phallus, testicles normal, no hernia or hydrocele Aidan III Impression / Plan: 1. Well child with normal growth and development. Oral and written anticipatory guidance provided including well child information, nutrition, well balanced diet, safety,and general well child support agent. Patient counseled regarding avoidance of alcohol, tobacco and drugs. Parent and patient instructed to call if any questions, concerns, problems or other health issues. Plan per orders. Immunizations are up to date. Immunizations benefits and risks discussed including site soreness, fever and allergic reaction. Next Appointment: 1 year * Yasmine Graves - 02/10/2016 2:05 PM CDT Edil Hanna is a 15 y.o. male here for 15 yr well child visit. documented in this encounter Plan of Treatment Not on file documented as of this encounter Goals Goal Patient Goal Type Associated Problems Recent Progress Patient-Stated? Author Use safety retraint in car Lifestyle On track( 019 1:39 PM CDT) No Massiel Quintanilla documented as of this encounter Visit Diagnoses Diagnosis Encounter for routine child health examination without abnormal findings- Primary Routine infant or child health check documented in this encounter Care Teams Dispute Resolution Analyst Relationship Specialty Start Date End Date Heath Bello MD [address] [address] PCP - General 07/24/09 03/03/20 documented as of this encounter
--- OUTSIDE RECORDS SUMMARY | 2024-07-21 11:41 | XMS_ITS | Encounter Summary ---
Author Organization [facility] Address [facility] [place] [address] Care Team Providers Care Cartridge Loader Name Role Phone Heath Bello MD Primary Care Provider [phone] Reason for Visit * Reason Comments Well Child Check 17Y Encounter Details Date Type Department Care Team (Late st Contact Info) Description 12/20/2017 1:45 PM CDT Office Visit [facility] Medical [facility] - Pediatrics [address] [place] [address] Elana Nogueira MD [address] [address] [place] [address] Well adolescent visit (Primary Dx); Nevus Social History Tobacco Use Types Packs/Day Years [...] Sign Reading Time Taken Comments Blood Pressure 120/76 12/20/2017 1:31 PM CDT Pulse - - Temperature 36.6 ??C (97.9 ??F) 12/20/2017 1:31 PM CD T Respiratory Rate - - Oxygen Saturation - - Inhaled Oxygen Concentration - - Weight 63 kg (139 lb) 12/20/2017 1:31 PM CDT Height 173.4 cm (5' 8.25 ) 12/20/2017 1:31 PM CD T Body Mass Index 20.98 12/20/2017 1:31 PM CDT Body Mass Index Percentile 63.25% 12/20/2017 1:3 1 PM CDT Growth Chart: [facility] (Boys, 2-2 0 Years) documented in this encounter Patient Instructions * Patient Instructions* Victor M Yara A - 12/20/2017 1:31 PM CDT YOUR GROWING CHILD: 15 TO 17 YEARS Child???s Name: Edil Hanna Today???s Date: 12/20/2017 BP 120/76 Temp 97.9 ??F (36.6 ??C) (Temporal) Ht 1.734 m (5' 8.25 ) Wt 63 kg (139 lb) BMI 20.98 kg/m2 Wt Readings from Last 1 Encounters: 12/20/17 63 kg (139 lb) (69 %, Z= 0.50)* * Growth percentiles are based on CDC 2-20 Years data. 69 %ile (Z= 0.50) based on CDC 2-20 Years mdqcye-gvs-zkc data using vitals from 12/20/2017. Ht Readings from Last 1 Encounters: 12/20/17 1.734 m (5' 8.25 ) (62 %, Z= 0.31)* * Growth percentiles are based on CDC 2-20 Years data. 62 %ile (Z= 0.31) based on CDC 2-20 Years ahzyazu-vyi-pqm data using vitals from 12/20/2017. IMMUNIZATIONS One of the best ways to [...] they or someone they know is beingbullied. Speak with your child about what they might want to do after high school, where they might want to go to college, and if they have a career in mind. It???s a good idea to give your child chores to do around the house. Some age appropriate chores include: 1. Wash dishes 2. Prepare simple family meals 3. [place] leaves 4. Take the trash out for pick-up 5. Be responsible for feeding and watering the family pet 6. Keep bedroom and designates room in house clean 7. Vacuum individual rooms 8. Be responsible for homework 9. Help younger siblings with their chores Limit TV and electronic device time to [...] boards, scooters, horses, pogo sticks, etc. CAR SAFETY Please speak with your child about the importance of car safety. Make use that they wear seat beltsat all times while driving or being a passenger. Also speak to them about cell phone usage while driving. The texts and phone calls can WAIT. [place] and [place] law, effective March 07, 2006, says your child must be in a booster seat if they are ages 4 through 7 who weigh at least 40 pounds, unless they are 80 pounds or 4???9?? tall. DO NOT ALLOW ANYONE TO SMOKE AROUND YOUR CHILD. DIET Make sure that your child is eating breakfast in the morning head school custodian. Encourage them to eat at least 3 [...] Where can I go for more information? [employer] Pediatrics ( ) www.aap.org, HealthyChildren.org www.healthychildren.org Website and free downloadable jonelle for smartphones: http://www.Picturelife/ and http://www.Ilesfay Technology [employer]/ documented in this encounter Progress Notes * Elana Nogueira MD - 12/20/2017 2:01 PM CDT Adolescent Well Appointment Clerk Visit Name: Edil Hanna Age: 17 y.o. Accompanied By: Father Concerns: Chief Complaint Patient presents with ??? Well Child Check 17Y mole on chin was removed by Canal Boat Operator, and now back again. Diet: Eats well balanced meals, good variety Yes Limits foods high in fat or calorie content Yes Interim Illness: The patient returns today for routine well child care centre manager. Illnesses since our last visit include: none Meds: No current outpatient prescriptions on file. No current facility-administered medications for this visit. Allergies: No Known Allergies Social History: Home: lives with their family Education: 10th Grade. Fall 2017 [employer] Activities: baseball Drugs: no alcohol use no tobacco use no caffeine use Drug use: Never Sex: not sexually active Psych: No concerns for depression or suicidal ideation OBJECTIVE: BP 120/76 Temp 97.9 ??F (36.6 ??C) (Temporal) Ht 1.734 m (5' 8.25 ) Wt 63 kg (139 lb) BMI 20.98 kg/m2 No head circumference on file for this encounter. 69 %ile (Z= 0.50) based on [facility] 2-20 Years lmcvvr-dxv-gme data using vitals from 12/20/2017. 62 %ile (Z= 0.31) based on CDC 2-20 Years rhcstfv-nlu-bub data using vitals from 12/20/2017. Physical Exam: GENERAL: Alert, well developed, well nourished SKIN: Facial acne, hyperpigmented nevus on neck and chin area HEAD: Normocephalic EYES: PERRL, EOMI, fundi grossly [...] normal, no hernia or hydrocele Aidan III and IV Impression / Plan: 1. Well adolescent with normal growth and development. Oral and written anticipatory guidance provided including well child information, nutrition, well balanced diet, safety,and general well child care centre manager. Patient counseled regarding avoidance of alcohol, tobacco and drugs. Parent and patient instructed to call if any questions, concerns, problems or other health issues. Plan per orders. Immunizations are up to date. Vision screen passed bilaterally. Immunizations benefits and risks discussed including site soreness, fever and allergic reaction. 2. Nevi - refer to dermatology to re-evaluate nevus on left chin. Encourage sunscreen. Next Appointment: 1 year documented in this encounter Plan of Treatment Not on file documented as of this encounter Goals Goal Patient Goal Type Associated Problems Recent Progress Patient-Stated? Author Use safety retraint in car Lifestyle On track( 019 1:39 PM CDT) No Massiel Quintanilla documented as of this encounter Visit Diagnoses Diagnosis Well adolescent visit- Primary Routine infant or child health check Nevus Benign neoplasm of skin, site unspecified documented in this encounter Care Teams Cartridge Loader Relationship Specialty Start Date End Date Heath Bello MD [address] [address] PCP - General 07/24/09 03/03/20 documented as of this encounter
--- OUTSIDE RECORDS SUMMARY | 2024-07-21 11:41 | XMS_ITS | Encounter Summary ---
Author Organization [facility] Address [facility] [facility] [place] [address] Care Team Providers Care Director Video Name Role Phone Heath Bello MD Primary Care Provider [phone] Reason for Visit * Reason Comments Complete Physical Exam Encounter Details Date Type Department Care Team (Late st Contact Info) Description 02/07/2019 1:45 PM CDT Office Visit [facility] Medical [facility] - Pediatrics [address] [place] [phone] Karuna Sparks APRN-PRINTING SALES REPRESENTATIVE [address] [place] [address] Encounter for well child visit at 18 years of age (Primary Dx); Need for vaccination Social History Tobacco Use Types Packs/Day Years [...] Pressure 96/56 02/07/2019 1:39 PM CDT Pulse - - Temperature 37.1 ??C (98.8 ??F) 02/07/2019 1:39 PM CD T Respiratory Rate - - Oxygen Saturation - - Inhaled Oxygen Concentration - - Weight 64.9 kg (143 lb) 02/07/2019 1:39 PM CDT Height 174.1 cm (5' 8.54 ) 02/07/2019 1:39 PM CD T Body Mass Index 21.4 02/07/2019 1:39 PM CDT Body Mass Index Percentile 58.36% 02/07/2019 1:3 9 PM CDT Growth Chart: [facility] (Boys, 2-2 0 Years) documented in this encounter Patient Instructions * Patient Instructions* Monty Morin - 02/07/2019 1:39 PM CDT YOUR GROWING CHILD: 15 TO 17 YEARS Child???s Name: Edil Hanna Today???s Date: 02/07/2019 BP 96/56 Temp 98.8 ??F (37.1 ??C) Ht 1.741 m (5' 8.54 ) Wt 64.9 kg (143 lb) BMI 21.4 kg/m2 Wt Readings from Last 1 Encounters: 02/07/19 64.9 kg (143 lb) (59 %, Z= 0.22)* * Growth percentiles are based on CDC 2-20 Years data. 59 %ile (Z= 0.22) based on CDC 2-20 Years hlhurw-xos-oza data using vitals from 02/07/2019. Ht Readings from Last 1 Encounters: 02/07/19 1.741 m (5' 8.54 ) (49 %, Z= -0.03)* * Growth percentiles are based on CDC 2-20 Years data. 49 %ile (Z= -0.03) based on CDC 2-20 Years rgjinzh-vch-zfb data using vitals from 02/07/2019. IMMUNIZATIONS One of the best ways to [...] dishes 2. Prepare simple family meals 3. [place] leaves 4. Take the trash out for [...] The texts and phone calls can WAIT. [place] and [place] law, effective March 07, 2006, says your child must be in a booster seat if they are ages 4 through 7 who weigh at least 40 pounds, unless they are 80 pounds or 4???9?? tall. DO NOT ALLOW ANYONE TO SMOKE AROUND YOUR CHILD. DIET Make sure that your child is eating breakfast in the morning middle school music teacher. Encourage them to eat at least [...] Where can I go for more information? [employer]s ( ) www.aap.org, HealthyChildren.org www.healthychildren.org Website and free downloadable jonelle for smartphones: http://www.Receptos/ and http://www.eMerge [employer] Solutions/ documented in this encounter Progress Notes * Karuna Sparks, GEOSCIENCES PROFESSOR-PRINTING SALES REPRESENTATIVE - 02/07/2019 1:45 PM CDT Adolescent Well Driller Multiple Spindle Visit Name: Edil Hanna Age: [age] year old Accompanied By: Mother Chief Complaint Patient presents with ??? Complete Physical Exam Concerns: none Diet: Eats well balanced meals, good variety Yes Limits foods high in fat or calorie content Yes Interim Illness: The patient returns today for routine well child welfare social worker. Illnesses since our last visit include: none Meds: Current Outpatient Prescriptions Medication Sig Dispense Refill ??? methylphenidate CR (CONCERTA) 27 MG tablet Take 1 tablet by mouth every morning (Patient not taking: Reported on 02/07/2019) 30 tablet 0 No current facility-administered medications for this visit. Allergies: No Known Allergies Social History: Home: lives with their family Education: 11th Grade. No teacher or parent concerns. and Doing well in school Activities: Baseball Drugs: no alcohol use no tobacco use Drug use: Never Sex: heterosexual, not sexually active Psych: No concerns for depression or suicidal ideation OBJECTIVE: BP 96/56 Temp 98.8 ??F (37.1 ??C) Ht 1.741 m (5' 8.54 ) Wt 64.9 kg (143 lb) BMI 21.4 kg/m2 Wt Readings from Last 3 Encounters: 02/07/19 64.9 kg (143 lb) (59 %, Z= 0.22)* 12/20/17 63 kg (139 lb) (69 %, Z= 0.50)* 03/24/17 59.1 kg (130 lb 3.2 oz) (69 %, Z= 0.50)* * Growth percentiles are based on CDC 2-20 Years data. Ht Readings from Last 3 Encounters: 02/07/19 1.741 m (5' 8.54 ) (49 %, Z= -0.03)* 12/20/17 1.734 m (5' 8.25 ) (62 %, Z= 0.31)* 02/09/17 1.715 m (5' 7.5 ) (74 %, Z= 0.64)* * Growth percentiles are based on CDC 2-20 Years data. 59 %ile (Z= 0.22) based on CDC 2-20 Years yalkrk-cxf-jaj data using vitals from 02/07/2019. 49 %ile (Z= -0.03) based on CDC 2-20 Years rzllnis-djq-jiv data using vitals from 02/07/2019. Body mass index is 21.4 kg/(m^2). Physical Exam: GENERAL: Alert, well developed, well nourished SKIN: No rash or lesions HEAD: Normocephalic EYES: PERRL, EOMI, fundi grossly normal, red reflex bilat EARS: TM's WNL, canals clear NOSE: Passages clear MOUTH: OP clear, dentition appropriate, no oral lesions or excessive dental caries NECK: Thyroid not enlarged, nodes WNL, no mass or torticollis LUNGS: CTA bilaterally HEART: RRR without murmur ABD: Soft, NT,ND, NABS, no mass or HSM EXT: MAEW, FROM, no C/C/E, pulses 2+ BACK: No scoliosis NEURO: Alert, nl tone and reflexes for age, age appropriate gait : Nl male phallus, testicles normal, no hernia or hydrocele Aidan Stage: III-IV Impression / Plan: 1. Well child with normal growth and development. Oral and written anticipatory guidance provided including well child information, nutrition, well balanced diet, safety,and general well child welfare social worker. Patient counseled regarding avoidance of alcohol, tobacco and drugs. Parent and patient instructed to call if any questions, concerns, problems or other health issues. 2. Acne - Followed by dermatology - Currently on Accutane. Follow up as scheduled. Plan per orders. Menactra #2 Immunizations benefits and risks discussed including site [...] this encounter Visit Diagnoses Diagnosis Encounter for well child visit at 18 years of age- Primary Need for vaccination Need for prophylactic vaccination and inoculation against unspecified single disease documented in this encounter Care Teams Director Video Relationship Specialty Start Date End Date Heath Bello MD [address] [address] PCP - General 07/24/09 03/03/20 documented as of this encounter
--- OUTSIDE RECORDS SUMMARY | 2024-07-21 11:41 | XMS_ITS | Encounter Summary ---
Author Organization [facility] Address [address] [place] [address] Care Team Providers Care Watch Case Polisher Name Role Phone Heath Bello MD Primary Care Provider [phone] Encounter Details Date Type Department Care Team (Latest Contact Info) Description 08/15/2009 12:01 AM MANAGER OF CLINICAL - 08/15/2009 11:59 PM [facility] Hospital Encounter CG DEFAULT [address] [place] [address] Veronica Ramos MD [address] [place] [address] [address] [place] [id number] Orthopedics Discharge Disposition: Home or Self Care Social History Tobacco Use Types Packs/Day Years Used Date Smoking Tobacco: Never Assessed Sex and Gender Information Value Date Recorded Sex Assigned at Not on file Gender Identity Not on file Sexual Orientation Not on file documented as of this encounter Progress Notes * Natanael Dewey - 08/15/2009 12:00 AM [facility] Pediatric Orthopaedic Consultation HISTORY: This patient is a 8-year-old male who is now 7 weeks status post closed reduction and percutaneous pinning of a left supracondylar humerus fracture. He has been out of his cast and the pins have beenout for about 3 weeks now. He reports that he has no problems. PHYSICAL EXAMINATION: The patient's elbow has no gross deformity and his pin sites are healed. He has full extension and lacks about 10-15 degrees of flexion. He has no pain with range of motion. RADIOGRAPHS: X-rays reveal excellent alignment of his fracture with abundant callus formation. ASSESSMENT: Healing left supracondylar humerus fracture. PLAN: At this time, the patient is doing very well. The mother was educated that he is still at an increased risk of refracture and we would like him to avoid organized sporting activities and PE for another 4 months. In that time, he will be 6 months out from treatment and we anticipate a full release at that point. We will see him back in 4 months time for repeat x-rays and clinical evaluation. I have personally seen and evaluated the above patient with the resident. I have discussed the results of the physical exam and all studies with the patient and family. I developed the above plan ofcare and discussed it with the patient. I have revised the above dictation and agree with the resident's assessment and plan of care. Dictated By: NATANAEL DEWEY MD Dictated For: VERONICA RAMOS MD Electronically Signed 08/19/2009 12:46:54 MANAGER OF CLINICAL DIANE/amrit JOB ID: [id number] cc: HEATH BELLO MD GER OF CLINICAL documented in this encounter Plan of Treatment Scheduled Orders Name Type Priority Associated Diagnoses Orde r Schedule XR ELBOW 2 VW LEFT Imaging Routine ONCE f or 1 Occurrences starting 08/15/2009 until 08/15/2009, 1 completed documented as of this encounter Procedures Procedure Name Priority Date/Time Associated Diagnosis Comments XR ELBOW LEFT 2VW Routine 08/15/2009 8:0 8 AM MANAGER OF CLINICAL Closed Fracture of Supracondylar Humerus documented in this encounter Results * XR ELBOW 2 VW LEFT (08/15/2009 8:08 AM MANAGER OF CLINICAL) Anatomical Region Laterality Modality Upper Extremity Other 08/15/2009 8:08 AM MANAGER OF CLINICAL Narrative 08/15/2009 4:01 PM MANAGER OF CLINICAL Exam- Left elbowS AP and lateral views History- Supracondylar fracture Findings- The securing pins have been removed. The alignment of the supracondylar fracture is near anatomic. Continued bone changes and healing are seen. There is no soft tissue swelling. Impression- Healing supracondylar fracture. Norberto Larson MD (resident). ? Reading RadiologistPaul NOONAN MD ? Releasing RadiologistPaul NOONAN MD ? Released Date Time- 08/15/09 1602 ? Diploma Pharmacy Technician- STEFF LARSON MD ? ADM- VERONICA RAMOS ?ATT- VERONICA RAMOS ORD- VERONICA RAMOS ?CON- PCP- HEATH BELLO ? SCP- Procedure Note Erum Noonan MD, MD - 08/15/2009 Exam- Left elbowS AP and lateral views History- Supracondylar fracture Findings- The securing pins have been removed. The alignment of the supracondylar fracture is near anatomic. Continued bone changes and healing are seen. There is no soft tissue swelling. Impression- Healing supracondylar fracture. Norberto Larson MD (resident). Reading Kristel NOONAN MD Releasing RadiologistPaul NOONAN MD Released Date Time- 08/15/09 1602 Diploma Pharmacy Technician- STEFF LARSON MD ADM- VERONICA RAMOS ATT- VERONICA RAMOS ORD- VERONICA RAMOS CON- PCP- HEATH BELLO SCP- Veronica Ramos MD DIAGNOSTIC IMAGING O YOLANDA documented in this encounter Visit Diagnoses Diagnosis Closed fracture of supracondylar humerus documented in this encounter Care Teams Watch Case Polisher Relationship Specialty Start Date End Date Heath Bello MD [address] [address] PCP - General 07/24/09 03/03/20 documented as of this encounter
--- OUTSIDE RECORDS SUMMARY | 2024-07-21 11:41 | XMS_ITS | Encounter Summary ---
Author Organization [facility] Address [facility] [facility] [place] [address] Care Team Providers Care Cash Surrender Calculator Name Role Phone Heath Bello MD Primary Care Provider [phone] Reason for Visit * Reason Comments Poison Yas [place] Exposure Encounter Details Date Type Department Care Team (Late st Contact Info) Description 03/24/2017 3:45 PM CDT Office Visit [facility] - Pediatrics [address] [place] [phone] Karuna Sparks, ATILIO-WELDING MACHINE OPERATOR THERMIT [address] [place] [address] Skin lesion (Primary Dx) Social History Tobacco Use Types [...] Taken Comments Blood Pressure - - Pulse - - Temperature 37.1 ??C (98.8 ??F) 03/24/2017 3:47 PM CD T Respiratory Rate - - Oxygen Saturation - - Inhaled Oxygen Concentration - - Weight 59.1 kg (130 lb 3.2 oz) 03/24/2017 3:47 P M CDT Height - - Body Mass Index - - documented in this encounter Patient Instructions * Patient Instructions* Karuna Sparks, COMPUTER NETWORK SUPPORT SPECIALIST-WELDING MACHINE OPERATOR THERMIT - 03/24/2017 3:56 PM CDT Images from the original note were not included. Impetigo WHAT YOU NEED TO KNOW: What is impetigo? Impetigo is a skin infection caused by bacteria. The infection can cause sores toform anywhere on your body. The sores develop watery or pus- filled blisters that break and form thick crusts. Impetigo is most common in children and spreads easily from person to person. How is impetigo diagnosed? Your healthcare provider will examine your sores. A sample of fluid fromone of your sores may show which bacteria is causing your infection. How is impetigo treated? Antibiotics treat the bacterial infection. Antibiotics may be given as a pill or cream. Wash your skin and gently remove any crusts before you apply the antibiotic cream. How do I prevent the spread of impetigo? ?? Avoid direct contact. You can spread impetigo if someone touches or uses something that touched your infected skin. You can also spread impetigo on your own body when you touch the area and then touch somewhere else. Keep the sores covered with gauze so you will not scratch or touch them. Keep your fingernails short. Your child may need to wear mittens so he does not scratch his sores. ?? Wash your hands often. Always wash your hands after you touch the infected area. Wash your handsbefore you touch food, your eyes, or other people. If no water is available, use an alcohol-based gel to clean your hands. ?? Wash household items. Do not share or reuse items that have come in contact with impetigo sores.Examples include bedding, towels, washcloths, and eating utensils. These items may be used again after they have been washed with hot water and soap. How do I clean my sores safely? Wash your skin sores with antibacterial soap and water. You may need to do this 2 to 3 times each day until the sores heal. If the area is crusted, gently wash the sores with gauze or a clean washcloth to remove the crust. Pat the area dry with a clean towel. Wash your hands, the washcloth, and the towel after you clean the area around the sores. When is it safe to return to work or school? You may return to work or school 48 hours after you start the antibiotic medicine. If your child has impetigo, tell his school or daycare center about theinfection. When should I seek immediate care? ?? You have painful, red, warm skin around the blisters. ?? Your face is swollen. ?? You urinate less than usual or there is blood in your urine. When should I contact my healthcare provider? ?? You have a fever. ?? The sores become more red, swollen, warm, or tender. ?? The sores do not start to heal after 3 days of treatment. ?? You have questions or concerns about your condition or care. CARE AGREEMENT: You have the right to help plan your care. Learn about your health condition and how it may be treated. Discuss treatment options with your caregivers to decide what care you want to receive. You always have the right to refuse treatment. The above information is an educational manager only. It is not intended as medical advice for individual conditions or treatments. Talk to your doctor, nurse or pharmacist before following any medical regimen to see if it is safe and effective for you. ?? 2016 [employer]. Information is for End User's use only and may not be sold, redistributed or otherwise used for commercial purposes. All illustrations and images included in CareNotes?? are the copyrighted property of [employer] or [employer]. documented in this encounter Progress Notes * Karuna Sparks APRN-CNP - 03/24/2017 3:50 PM CDT Sick Visit Name: Edil Hanna Age: 16 y.o. Accompanied By: Mother CC: Chief Complaint Patient presents with ??? Poison Yas [place] Exposure HPI: Edil is a 16 yr old male who is here today for evaluation of a skin lesion that he has on his right cheek. First noted it 2 days ago and thought it was a pimple. It began to spread and now has crusting. A friend of his was recently Dx with a staph infection on his hand/arm and is on abx. No fevers noted. It hurts when you touch it. No other illnesses. No cough, congestion, vomiting, or diarrh ea. Current Medications: No current outpatient prescriptions on file. No current facility-administered medications for this visit. Allergies: No Known Allergies PE: Temp 98.8 ??F (Temporal) Wt 59.1 kg (130 lb 3.2 oz) General alert, cooperative, no distress Skin 1.5 cm diameter erythematous skin lesion with honey colored crusting to right cheek. Eyes/Ears sclera and conjunctiva clear bilateral TM's and external ear canals normal Heart regular rate and rhythm, S1, S2 normal, no murmur, click, rub or gallop Lungs clear to auscultation bilaterally Extremities no cyanosis, edema Impression / Plan: 1. Skin lesion. Consistent with impetigo. Duricef 500 mg po BID x 10 days. Possible side effects discussed. Impetigo handout given. Encouraged to call if sxs persist or with any concerns. documented in this encounter Plan of Treatment Not on file documented as of this encounter Goals Goal Patient Goal Type Associated Problems Recent Progress Patient-Stated? Author Use safety retraint in car Lifestyle On track( 019 1:39 PM CDT) No Massiel Quintanilla documented as of this encounter Visit Diagnoses Diagnosis Skin lesion- Primary Unspecified disorder of skin and subcutaneous tissue documented in this encounter Care Teams Cash Surrender Calculator Relationship Specialty Start Date End Date Heath Bello MD [address] [facility] [address] [address] PCP - General 07/24/09 03/03/20 documented as of this encounter
--- OUTSIDE RECORDS SUMMARY | 2024-07-21 11:41 | XMS_ITS | Patient Health Summary ---
Author Organization [facility] Address [address] [place] [address] Care Team Providers Care Hospice Volunteer Name Role Phone Unavailable Primary Care Provider Unavailabl e Note from [facility],non-owned Affiliates and Associated Physician Practices is amultiple site organization consisting of ambulatory clinics and hospital sitesin [place], [place], [place] and [place]. This disclosure is being madepursuant to the Care Everywhere program and may not contain all information available regarding this patient. Last updated 18.[facility] Allergies No known active allergies Medications Be aware that medications may not be up to date on this document. Always verify current medications with the patient. No known medications Active Problems Problem Noted Date Diagnosed Date Screening for condition 01/04/2012 Well child visit 05/01/2010 Resolved Problems Problem Noted Date Diagnosed Date Resolved Date Fracture of fifth metacarpal bone of right hand 10/09/2014 03/24/2017 AOM (acute otitis media) 08/14/2012 Acute sinusitis 11/19/2011 11/20/2014 Acute pharyngitis 08/31/2010 03/24/2017 Acute URI 08/31/2010 03/24/2017 Immunizations * DTaP VACCINE IM (6wk-6yrs)(Given 01/23/2007, 01/10/2004, 04/19/2003, 02/08/2003, 2002) * HEP A PEDS 2 DOSE(Given 01/22/2008, 01/23/2007) * HEP B VACCINE, PED/ADOL(Given 04/19/2003, 2002, 2002) * HIB BOOSTER(Given 01/10/2004, 04/19/2003, 02/08/2003, 2002) * INFLUENZA VACCINE(Given 05/20/2007, 06/24/2006, 06/01/2004) * MENINGOCOCCAL CONJUGATE (MCV4P)(Given 02/07/2019, 02/04/2014) * MMR(Given 01/22/2008, 09/30/2003) * PNEUMOCOCCAL CONJ, PEDS(Given 04/20/2004, 04/19/2003, 02/08/2003, 2002) * POLIO IPV(Given 02/08/2007, 01/23/2007, 09/30/2003, 2002) * PPD(Given 01/22/2008) * TDAP (7yrs+)(Given 02/04/2014) * VARICELLA(Given 01/22/2008, 09/30/2003) Social History Tobacco Use Types Packs/Day Years [...] PM CDT Pulse 103 07/22/2016 12:19 PM FRIED CAKE MAKER Temperature 37.1 ??C (98.8 ??F) 02/07/2019 1:39 PM CD T Respiratory Rate - - Oxygen Saturation 97% 07/22/2016 12:19 PM FRIED CAKE MAKER Inhaled Oxygen Concentration - - Weight 64.9 kg (143 lb) 02/07/2019 1:39 PM CDT Height 174.1 cm (5' 8.54 ) 02/07/2019 1:39 PM CD T Body Mass Index 21.4 02/07/2019 1:39 PM CDT Procedures * INFLUENZA A+B - POINT OF CARE (AMB)(Performed 07/22/2016) Performed for Fever, unspecified fever cause * IMAGING/RADIOLOGY/XRAY RESULTS ORDER(Performed 10/09/2014) * INFLUENZA A+B - POINT OF CARE (AMB)(Performed 05/20/2014) Performed for Fever * IMAGING/RADIOLOGY/XRAY RESULTS ORDER(Performed 01/03/2013) * LIPID PROFILE+GLUCOSE - POINT OF CARE (AMB)(Performed 01/04/2012) Performed for Screening for lipoid disorders * INFLUENZA A+B - POINT OF CARE (AMB)(Performed 09/02/2011) Performed for Fever * CULTURE STREP GROUP A(Performed 09/02/2011) Performed for Fever * STREP A SCREEN - POINT OF CARE (AMB)(Performed 09/02/2011) Performed for Fever * STREP A SCREEN - POINT OF CARE (AMB)(Performed 08/31/2010) Performed for Acute pharyngitis * XR ELBOW LEFT 2VW(Performed 08/15/2009) Performed for Closed Fracture of Supracondylar Humerus * XR ELBOW LEFT 2VW(Performed 07/25/2009) Performed for Closed Fracture of Supracondylar Humerus * XR ELBOW LEFT 2VW(Performed 06/24/2009) Results * (ABNORMAL) INFLUENZA A+B - POINT OF CARE (AMB) (07/22/2016) Only the most recent of3 resultswithin the time period is included. Influenza A Antigen Rapid Negative Negative Influenza B Antigen Rapid Positive(A) Negative Influenza Internal Control present NEGATIVE - POSITIVE Influenza Lot Number [id number] Influenza Expiration Date 10/08/17 Other SPECIMEN FROM NASOPHARYNGEAL STRUCTURE / Unknown 07/22/2016 Karuna Sparks APRN-SECURITY FIELD SUPERVISOR LAB - POINT OF CA RE ORDERABLES * IMAGING/RADIOLOGY/XRAY RESULTS ORDER (10/09/2014) Only the most recent of2 resultswithin the time period is included. Anatomical Region Laterality Modality Other Scanned Document IMAGING * LIPID PROFILE+GLUCOSE - POINT OF CARE (AMB) (01/04/2012 2:57 PM CDT) QC Verified yes Yes Cholesterol POCT 184 >200 mg/dl HDL POCT 77 <40 - >60 mg/dL Triglycerides POCT 53 >130 mg/dL LDL 96 >130 mg/dl Non HDL Cholesterol POCT 107 >145 mg/dL Total Cholesterol/HDL Ratio POCT 2.4 >6.0 Glucose 82 >126 mg/dL BLOOD SPECIMEN / Unknown Heath Bello MD LAB - POINT OF CARE ORDERABLES * CULTURE STREP GROUP A (09/02/2011 3:08 PM FRIED CAKE MAKER) Beta-Strep Culture, Group A Only Negative [facility] ACCOUNT BILL Miscellaneous samples (specimen) ENTIRE THROAT (SURFACE REGION OF NECK) / Unknown 09/02/2011 3:08 PM FRIED CAKE MAKER 09/02/2011 10:21 PM FRIED CAKE MAKER Narrative Resulting Agency Comment [facility] [address] ??[facility] [phone] Karuna Sparks APRN-SECURITY FIELD SUPERVISOR LAB - MICROBIOLOG Y ORDERABLES [facility] ACCOUNT BILL * STREP A SCREEN - POINT OF CARE (AMB) (09/02/2011 3:07 PM FRIED CAKE MAKER) Only the most recent of2 resultswithin the time period is included. Strep A Rapid POCT Negative Negative Strep A Internal Control NEGATIVE - POSITIVE Throat swab (specimen) ENTIRE THROAT (SURFACE REGION OF NECK) / Unknown Karuna Sparks APRN-SECURITY FIELD SUPERVISOR LAB - POINT OF CA RE ORDERABLES * XR ELBOW 2 VW LEFT (08/15/2009 8:08 AM FRIED CAKE MAKER) Only the most recent of3 resultswithin the time period is included. Anatomical Region Laterality Modality Upper Extremity Other 08/15/2009 8:08 AM FRIED CAKE MAKER Narrative 08/15/2009 4:01 PM FRIED CAKE MAKER Exam- Left elbowS AP and lateral views History- Supracondylar fracture Findings- The securing pins have been removed. The alignment of the supracondylar fracture is near anatomic. Continued bone changes and healing are seen. There is no soft tissue swelling. Impression- Healing supracondylar fracture. Norberto Larson MD (resident). ? Reading Radiologist- NOÉ NOONAN MD ? Releasing Radiologist- NOÉ NOONAN MD ? Released Date Time- 08/15/09 1602 ? Wheelchair Driver- STEFF LARSON MD ? ADM- VERONICA RAMOS S ?ATT- VERONICA RAMOS S ORD- VERONICA RAMOS S ?CON- PCP- HEATH BELLO ? SCP- Procedure Note Noé Noonan MD, MD - 08/15/2009 Exam- Left elbowS AP and lateral views History- Supracondylar fracture Findings- The securing pins have been removed. The alignment of the supracondylar fracture is near anatomic. Continued bone changes and healing are seen. There is no soft tissue swelling. Impression- Healing supracondylar fracture. Norberto Larson MD (resident). Reading Radiologist- NOÉ NOONAN MD Releasing Radiologist- NOÉ NOONAN MD Released Date Time- 08/15/09 1602 Wheelchair Driver- STEFF LARSON MD ADM- VERONICA RAMOS ATT- VERONICA RAMOS ORD- VERONICA RAMOS CON- PCP- HEATH BELLO SCP- Veronica Ramos MD DIAGNOSTIC IMAGING O CECELIABLES
--- OUTSIDE RECORDS SUMMARY | 2024-07-21 11:41 | XMS_ITS | Encounter Summary ---
Author Organization [facility] Address [facility] [facility] [place] [address] Care Team Providers Care Want Ad Clerk Name Role Phone Heath Bello MD Primary Care Provider [phone] Reason for Visit * Reason Comments Well Child Check 16 year Encounter Details Date Type Department Care Team (Late st Contact Info) Description 02/09/2017 11:30 AM CDT Office Visit [facility] - Pediatrics [address] [place] [phone] Karuna Sparks, ATILIO-PRODUCTION LAPPING MACHINE OPERATOR [address] [place] [address] Well adolescent visit (Primary Dx) Social History Tobacco Use [...] Sign Reading Time Taken Comments Blood Pressure 111/70 02/09/2017 11:39 AM CDT Pulse - - Temperature 37.2 ??C (98.9 ??F) 02/09/2017 1 1:39 AM CDT Respiratory Rate - - Oxygen Saturation - - Inhaled Oxygen Concentration - - Weight 58.2 kg (128 lb 6.4 oz) 02/10/20 11:39 AM CDT Height 171.5 cm (5' 7.5 ) 02/09/2017 11 :39 AM CDT Body Mass Index 19.81 02/09/2017 11:39 AM CDT Body Mass Index Percentile 56.10% 02/09 11:39 AM CDT Growth Chart: [facility] (Boys, 2-2 0 Years) documented in this encounter Patient Instructions * Patient Instructions* Claudia Patel - 02/09/2017 11:40 AM CDT YOUR GROWING CHILD: 12 TO 14 YEARS Child???s Name: Edil Hanna Today???s Date: 02/09/2017 BP 111/70 Temp 98.9 ??F (Temporal) Ht 1.715 m (5' 7.5 ) Wt 58.2 kg (128 lb 6.4 oz) BMI 19.81 kg/m2 Wt Readings from Last 1 Encounters: 02/09/17 58.2 kg (128 lb 6.4 oz) (69 %, Z= 0.48)* * Growth percentiles are based on CDC 2-20 Years data. 69 %ile (Z= 0.48) based on CDC 2-20 Years yuxfby-gfr-yzf data using vitals from 02/09/2017. Ht Readings from Last 1 Encounters: 02/09/17 1.715 m (5' 7.5 ) (74 %, Z= 0.64)* * Growth percentiles are based on CDC 2-20 Years data. 74 %ile (Z= 0.64) based on CDC 2-20 Years cvcslhl-ghs-arc data using vitals from 02/09/2017. IMMUNIZATIONS One of the best ways to [...] dishes 2. Prepare simple family meals 3. [place] leaves 4. Take the trash out for [...] between 8 and 12 years of age). [place] and [place] law, effective March 07, 2006, says your [...] child is eating breakfast in the morning school lunch monitor. Encourage them to eat at least 3 [...] Where can I go for more information? [place] [employer] ( ) www.aap.org, HealthyChildren.org www.healthychildren.org Website and free downloadable jonelle for smartphones: http://www.[employer]/ and http://www.[employer]/ documented in this encounter Progress Notes * Karuna Sparks, ATILIO-PRODUCTION LAPPING MACHINE OPERATOR - 02/09/2017 11:50 AM CDT Adolescent Well Animal Anatomist Visit Name: Edil Hanna Age: 16 y.o. Accompanied By: Mother Chief Complaint Patient presents with ??? Well Child Check 16 year Concerns: None Diet: Eats well balanced meals, good variety Yes Limits foods high in fat or calorie content Yes CANDY: 07/22/16 Bilateral AOM Interim Illness: The patient returns today for routine well child care worker. Illnesses since our last visit include: None Meds: No current outpatient prescriptions on file. No current facility-administered medications for this visit. Allergies: No Known Allergies Social History: Home: lives with their family Education: 9th Grade. Doing well in school Activities: Basketball, Dirt bikes Drugs: no alcohol use no caffeine use no tobacco use Drug use: Never Sex: not sexually active and heterosexual, not sexually active Psych: No concerns for depression or suicidal ideation OBJECTIVE: BP 111/70 Temp 98.9 ??F (Temporal) Ht 1.715 m (5' 7.5 ) Wt 58.2 kg (128 lb 6.4 oz) BMI 19.81 kg/m2 Wt Readings from Last 3 Encounters: 02/09/17 58.2 kg (128 lb 6.4 oz) (69 %, Z= 0.48)* 07/22/16 55.5 kg (122 lb 6.4 oz) (70 %, Z= 0.52)* 02/10/16 51.6 kg (113 lb 12.8 oz) (66 %, Z= 0.40)* * Growth percentiles are based on CDC 2-20 Years data. Ht Readings from Last 3 Encounters: 02/09/17 1.715 m (5' 7.5 ) (74 %, Z= 0.64)* 02/10/16 1.634 m (5' 4.33 ) (71 %, Z= 0.55)* 01/21/15 1.524 m (5') (57 %, Z= 0.16)* * Growth percentiles are based on CDC 2-20 Years data. 69 %ile (Z= 0.48) based on CDC 2-20 Years ruwsaq-xst-ukc data using vitals from 02/09/2017. 74 %ile (Z= 0.64) based on CDC 2-20 Years ibtxswv-zqs-wrr data using vitals from 02/09/2017. Body mass index is 19.81 kg/(m^2). Physical Exam: GENERAL: Alert, well developed, [...] normal, no hernia or hydrocele Aidan Stage: IV Impression / Plan: 1. Well child with normal growth and development. Oral and written anticipatory guidance provided including well child information, nutrition, well balanced diet, safety,and general well child care worker. Patient counseled regarding avoidance of alcohol, tobacco and drugs. Parent and patient instructed to call if any questions, concerns, problems or other health issues. Plan per orders. Immunizations UTD Next Appointment: 1 year documented in this encounter Plan of Treatment Not on file documented as of this encounter Goals Goal Patient Goal Type Associated Problems Recent Progress Patient-Stated? Author Use safety retraint in car Lifestyle On track( 019 1:39 PM CDT) Massiel Gaytan documented as of this encounter Visit Diagnoses Diagnosis Well adolescent visit- Primary Routine infant or child health check documented in this encounter Care Teams Want Ad Clerk Relationship Specialty Start Date End Date Heath Bello MD [address] [address] PCP - General 07/24/09 03/03/20 documented as of this encounter
--- OUTSIDE RECORDS SUMMARY | 2024-07-21 11:41 | XMS_ITS | Encounter Summary ---
Author Organization [facility] Address [facility] [place] [address] Care Team Providers Care Infant And Toddler Teacher Name Role Phone Heath Bello MD Primary Care Provider Reason for Visit * Reason Comments Fever on and off, cough, c ongestion, sore throat, GUERRA, stomach upset, throwing up Encounter Details Date Type Department Care Team (Late st Contact Info) Description 09/02/2011 2:45 PM GOLF COURSE PATROLLER Office Visit [facility] - Pediatrics [address] [facility] [address] [place] [phone] Karuna Sparks, HAIR STYLIST-TRIAL COURT JUSTICE [address] [place] [phone] Viral syndrome (Primary Dx); Fever Social History Tobacco Use Types Packs/Day Years Used Date Smoking Tobacco: Never Assessed Sex and Gender Information Value Date Recorded Sex Assigned at Not on file Gender Identity Not on file Sexual Orientation Not on file documented as of this encounter Last Filed Vital Signs Vital Sign Reading Time Taken Comments Blood Pressure - - Pulse - - Temperature 39.4 ??C (103 ??F) 09/02/2011 2:49 PM GOLF COURSE PATROLLER Respiratory Rate - - Oxygen Saturation - - Inhaled Oxygen Concentration - - Weight 27 kg (59 lb 9.6 oz) 09/02/2011 2:[address] Height 132.1 cm (4' 4 ) 09/02/2011 2:49 PM GOLF COURSE PATROLLER Body Mass Index 15.5 09/02/2011 2:49 PM GOLF COURSE PATROLLER Body Mass Index Percentile 35.29% 09/02/2011 2:4 9 PM GOLF COURSE PATROLLER Growth Chart: [facility] (Boys, 2-2 0 Years) documented in this encounter Progress Notes * Karuna Sparks APRN - 09/02/2011 2:54 PM CST Sick Visit Name: Edil Hanna Age: 10 y.o. Accompanied By: Mother CC: Chief Complaint Patient presents with ??? Fever on and off, cough, congestion, sore throat, GUERRA, stomach upset, throwing up HPI: Low grade fever x 3-4 days ago. Cough and congestion x 4 days. Vomited 1 time, mostly mucous. Has also complained of stomach pain and GUERRA. Denies sore throat . Current Medications: No current outpatient prescriptions on file. Allergies: No Known Allergies PE: Temp(Src) 103 ??F (Temporal Artery) Wt 59 lb 9.6 oz (27.034 kg) BMI 15.50 kg/m2 General alert, cooperative, no distress, ill-appearing Skin Skin color, texture, turgor normal. No rashes or lesions Head NCAT w/o lesions or tenderness Eyes/Ears sclera and conjunctiva clear bilateral TM's and external ear canals normal Nose/ Throat nose:clear rhinorrhea, mucosal erythema and mucosal edema and congestion, throat: mild erythema and no erythema or exudates noted. Teeth and gums normal Neck supple, non-tender, with full ROM, and no lymphadenopathy Nodes no lymphadenopathy Heart regular rate and rhythm, S1, S2 normal, no murmur, click, rub or gallop Lungs clear to auscultation bilaterally Abdomen soft, non-tender, non distended, normal BS Extremities no cyanosis, edema Impression / Plan: 1. Viral syndrome. RSS neg. Will follow throat culture. Influenza A & B neg. Continue symptomatic care. Encourage fluid intake. Tylenol or ibuprofen dosed to weight as needed. Call if sxs persistor get worse. COURSE PATROLLER documented in this encounter Plan of Treatment Not on file documented as of this encounter Procedures Procedure Name Priority Date/Time Associated Diagnosis Comments INFLUENZA A+B - POINT OF CARE (AMB) Routine 09/02/2011 3:19 PM GOLF COURSE PATROLLER Fever CULTURE STREP GROUP A Routine 09/02/2011 3:08 PM GOLF COURSE PATROLLER Fever STREP A SCREEN - POINT OF CARE (AMB) Routine 09/02/2011 3:07 PM GOLF COURSE PATROLLER Fever documented in this encounter Results * INFLUENZA A+B - POINT OF CARE (AMB) (09/02/2011 3:19 PM GOLF COURSE PATROLLER) Influenza A Antigen Rapid Negative Negative Influenza B Antigen Rapid Negative Negative Influenza Internal Control NEGATIVE - POSITIVE Influenza Lot Number Influenza Expiration Date Nasopharyngeal swab (specimen) SPECIMEN FROM NASOPHARYNGEAL STRUCTURE / Unknown Karuna Sparks HAIR STYLIST-TRIAL COURT JUSTICE LAB - POINT OF CA RE ORDERABLES * CULTURE STREP GROUP A (09/02/2011 3:08 PM GOLF COURSE PATROLLER) Beta-Strep Culture, Group A Only Negative [facility] ACCOUNT BILL Miscellaneous samples (specimen) ENTIRE THROAT (SURFACE REGION OF NECK) / Unknown 09/02/2011 3:08 PM GOLF COURSE PATROLLER 09/02/2011 10:21 PM GOLF COURSE PATROLLER Narrative Resulting Agency Comment [facility] [address] ??[facility] [phone] Karuna Sparks HAIR STYLIST-TRIAL COURT JUSTICE LAB - MICROBIOLOG Y ORDERABLES [facility] ACCOUNT BILL * STREP A SCREEN - POINT OF CARE (AMB) (09/02/2011 3:07 PM GOLF COURSE PATROLLER) Strep A Rapid POCT Negative Negative Strep A Internal Control NEGATIVE - POSITIVE Throat swab (specimen) ENTIRE THROAT (SURFACE REGION OF NECK) / Unknown Karuna Sparks APRN-TRIAL COURT JUSTICE LAB - POINT OF CA RE ORDERABLES documented in this encounter Visit Diagnoses Diagnosis Viral syndrome- Primary Unspecified viral infection, in conditions classified elsewhere and of unspecified site Fever Fever, unspecified documented in this encounter Care Teams Infant And Toddler Teacher Relationship Specialty Start Date End Date Heath Bello MD [address] [place] [address] PCP - General 07/24/09 03/03/20 documented as of this encounter
--- OUTSIDE RECORDS SUMMARY | 2024-07-21 11:41 | XMS_ITS | Encounter Summary ---
Author Organization [facility] Address [address] [place] [address] Care Team Providers Care Collision Technician Name Role Phone Heath Bello MD Primary Care Provider [phone] Reason for Visit * Reason Onset Date Comments Ear Problem 01/03/2015 Encounter Details Date Type Department Care Team (Late st Contact Info) Description 01/03/2015 Telephone [facility] - Pediatrics [address] [place] [address] [place] [phone] Heath Bello MD [address] [address] Ear Problem Social History Tobacco Use Types Packs/Day Years Used Date Smoking Tobacco: Never Alcohol Use Standard Drinks/Week Comments Not Asked 0 (1 standard drink = 0.6 oz pur e alcohol) Sex and Gender Information Value Date Recorded Sex Assigned at Not on file Gender Identity Not on file Sexual Orientation Not on file documented as of this encounter Miscellaneous Notes * Telephone Encounter - Kathy Machado RN - 01/03/2015 6:17 PM CDT Pt's mother informed of Dr. Bello's recommendations. She verbalized understanding and agreement. * Telephone Encounter - Heath Bello MD - 01/03/2015 5:45 PM CDT Will treat for presumed Otitis Externa - Ciprodex otic gtts, 4 gtts into affected ear BID x 1 week.No submersion swimming x 1 week. Call if symptoms worsen or persist. * Telephone Encounter - Vashti Arenas RN - 01/03/2015 3:31 PM CDT Mom states 14 yr old has what she thinks is swimmer's ear, they have a pool, he has had it in the past a couple times, he c/o pain when she touches the earlobe, no fever, no cold symptoms. Mom is asking for ear drops for presumed swimmer's ear, please advise, thanks documented in this encounter Plan of Treatment Not on file documented as of this encounter Visit Diagnoses Diagnosis Otitis externa, unspecified laterality- Primary documented in this encounter Care Teams Collision Technician Relationship Specialty Start Date End Date Heath Bello MD [address] [address] PCP - General 07/24/09 03/03/20 documented as of this encounter
--- OUTSIDE RECORDS SUMMARY | 2024-07-21 11:41 | XMS_ITS | Encounter Summary ---
Author Organization [facility] Address [facility] [facility] [place] [address] Care Team Providers Care Docking Saw Operator Name Role Phone Heath Bello MD Primary Care Provider [phone] Reason for Visit * Reason Onset Date Comments Appointment 08/26/2018 Encounter Details Date Type Department Care Team (Late st Contact Info) Description 08/26/2018 Telephone [facility] - Pediatrics [address] [facility] [address] [place] [phone] Heath Bello MD [address] [address] Appointment Social History Tobacco Use Types Packs/Day Years Used Date Smoking Tobacco: Never Alcohol Use Standard Drinks/Week Comments Not Asked 0 (1 standard drink = 0.6 oz pur e alcohol) Sex and Gender Information Value Date Recorded Sex Assigned at Not on file Gender Identity Not on file Sexual Orientation Not on file documented as of this encounter Miscellaneous Notes * Telephone Encounter - Kelsey Phillips - 08/26/2018 8:04 AM CST Edil Hanna called and canceled their appointment Appointment Date: 08/26/18 Appointment Time: 10:00am Provider: Vannessa Sparks NP E MAKER documented in this encounter Plan of Treatment Not on file documented as of this encounter Goals Goal Patient Goal Type Associated Problems Recent Progress Patient-Stated? Author Use safety retraint in car Lifestyle On track( 019 1:39 PM CDT) No Massiel Quintanilla documented as of this encounter Visit Diagnoses Not on filedocumented in this encounter Care Teams Docking Saw Operator Relationship Specialty Start Date End Date Heath Bello MD [address] [address] PCP - General 07/24/09 03/03/20 documented as of this encounter
--- OUTSIDE RECORDS SUMMARY | 2024-07-21 11:41 | XMS_ITS | Encounter Summary ---
Author Organization [facility] Address [address] [place] [address] Care Team Providers Care Flight Test Supervisor Name Role Phone Heath Bello MD Primary Care Provider [phone] Reason for Visit * Reason Comments Cough Headache Fever Congestion Encounter Details Date Type Department Care Team (Late st Contact Info) Description 05/20/2014 4:15 PM NUCLEAR PLANT TECHNICAL ADVISOR Office Visit [facility] - Pediatrics [address] [place] [phone] Heath Bello MD [address] [address] Acute sinusitis (Primary Dx); Fever Social History Tobacco Use [...] Pressure - - Pulse - - Temperature 38 ??C (100.4 ??F) 05/20/2014 4:24 PM NUCLEAR PLANT TECHNICAL ADVISOR Respiratory Rate - - Oxygen Saturation 99% 05/20/2014 4:24 PM NUCLEAR PLANT TECHNICAL ADVISOR Inhaled Oxygen Concentration - - Weight 36.3 kg (80 lb) 05/20/2014 4:24 PM NUCLEAR PLANT TECHNICAL ADVISOR Height 147.3 cm (4' 10 ) 05/20/2014 4:24 PM NUCLEAR PLANT TECHNICAL ADVISOR Body Mass Index 16.72 05/20/2014 4:24 PM NUCLEAR PLANT TECHNICAL ADVISOR Body Mass Index Percentile 34.22% 05/20/2014 4:2 4 PM NUCLEAR PLANT TECHNICAL ADVISOR Growth Chart: [facility] (Boys, 2-2 0 Years) documented in this encounter Progress Notes * Heath Bello MD - 05/20/2014 4:57 PM CST Sick Visit Name: Edil Hanna Age: 13 y.o. Accompanied By: Mother CC: Chief Complaint Patient presents with ??? Cough ??? Headache ??? Fever ??? Congestion HPI: Sxs started ~1 wk ago. cough and runny nose Fever: Started yesterday. Kd=625. Runny nose: Thick Cough: Productive cough, chest congestions, sounds rattly, Congestion: Marked Breathing difficulties: no Vomiting: no Diarrhea: no Pain / Discomfort: ST. Skin / Rash: no Activity: nl Appetite: nl Fluid Intake: nl Treatments tried: Sudafed cough and cold, OTC, helps. ibuprofen Ill contacts: No known ill contacts but attends school Current Medications: No current outpatient prescriptions on file. No current facility-administered medications for this visit. Allergies: No Known Allergies PE: Temp(Src) 100.4 ??F (Temporal) Wt 36.288 kg (80 lb) BMI 16.72 kg/m2 General alert, cooperative, no distress Skin [...] ROM, and no lymphadenopathy Nodes no lymphadenopathy in cervical and supraclavicular chains Heart regular rate and rhythm, S1, S2 normal, no murmur, click, rub or gallop Lungs clear to auscultation bilaterally Abdomen soft, non-tender, non distended, normal BS, no HSM Extremities no cyanosis, edema Impression / Plan: 1. Sinusitis - POC IRON CARRIER Rapid Flu A/B negative. Zithromax 400 mg po today then 200 mg po q d x 4 days. Symptomatic treatment, tylenol and/or ibuprofen as directed for weight and age prn, cool mist humidifier. May use OTC cough/cold medication as directed. DC if any side effects. Call if symptoms worsen, persist, or any signs or symptoms of respiratory distress. EAR PLANT TECHNICAL ADVISOR * Rosalina Ortiz - 05/20/2014 4:24 PM CST Edil Hanna is a 13 y.o. male is here with his mother with cough, congestion, recent spike in fever, and generally not feeling well. EAR PLANT TECHNICAL ADVISOR documented in this encounter Plan of Treatment Not on file documented as of this encounter Procedures Procedure Name Priority Date/Time Associated Diagnosis Comments INFLUENZA A+B - POINT OF CARE (AMB) Routine 05/20/2014 Fever documented in this encounter Results * INFLUENZA A+B - POINT OF CARE (AMB) (05/20/2014) Influenza A Antigen Rapid Negative Negative Influenza B Antigen Rapid Negative Negative Influenza Internal Control NEGATIVE - POSITIVE Influenza Lot Number Influenza Expiration Date Nasopharyngeal swab (specimen) SPECIMEN FROM NASOPHARYNGEAL STRUCTURE / Unknown 05/20/2014 Heath Bello MD LAB - POINT OF CARE ORDERABLES documented in this encounter Visit Diagnoses Diagnosis Acute sinusitis- Primary Fever Fever, unspecified documented in this encounter Care Teams Flight Test Supervisor Relationship Specialty Start Date End Date Heath Bello MD [address] [place] [address] PCP - General 07/24/09 03/03/20 documented as of this encounter
--- OUTSIDE RECORDS SUMMARY | 2024-07-21 11:41 | XMS_ITS | Referral Summary ---
Author Organization [facility] Address [address] [place] [address] Care Team Providers Care Country Printer Apprentice Name Role Phone Unavailable Primary Care Provider Unavailabl e Source Comments [facility],non-owned Affiliates and Associated Physician Practices is amultiple site organization consisting of ambulatory clinics and hospital sitesin [place], [place], [place] and [place]. This disclosure is being madepursuant to the Care Everywhere program and may not contain all information available regarding this patient. Last updated 18.ENDOTRONIX Allergies No known active allergies Medications Be [...] PM CDT Pulse 103 07/22/2016 12:19 PM HISTORIOGRAPHER Temperature 37.1 ??C (98.8 ??F) 02/07/2019 1:39 PM CD T Respiratory Rate - - Oxygen Saturation 97% 07/22/2016 12:19 PM HISTORIOGRAPHER Inhaled Oxygen Concentration - - Weight 64.9 kg (143 lb) 02/07/2019 1:39 PM CDT Height 174.1 cm (5' 8.54 ) 02/07/2019 1:39 PM CD T Body Mass Index 21.4 02/07/2019 1:39 PM CDT Plan of Treatment Not on file Goals Goal Patient Goal Type Associated Problems Recent Progress Patient-Stated? Author Use safety retraint in car Lifestyle On track( 019 1:39 PM CDT) Massiel Gaytan Edil Hanna Personal/Family Self 2000 [place] [address] [place] [id number]
--- OUTSIDE RECORDS SUMMARY | 2024-07-21 11:41 | XMS_ITS | Encounter Summary ---
Author Organization [facility] Address [facility] [facility] [address] [place] [address] Care Team Providers Care A Class Lineman Name Role Phone Heath Bello MD Primary Care Provider [phone] Reason for Visit * Reason Comments Ear Pain Right ear Encounter Details Date Type Department Care Team (Late st Contact Info) Description 01/04/2015 11:15 AM CDT Office Visit [facility] - Pediatrics [address] [facility] [address] [place] [phone] Karuna Sparks, ATILIO-MAILROOM SUPERVISOR [address] [facility] [address] [place] [address] Otitis externa, right (Primary Dx) Social History Tobacco Use Types [...] - - Temperature 37.1 ??C (98.8 ??F) 01/04/2015 11:23 AM C DT Respiratory Rate - - Oxygen Saturation - - Inhaled Oxygen Concentration - - Weight 40.8 kg (90 lb) 01/04/2015 11:23 AM CDT Height 12.7 cm (5 ) 01/04/2015 11:23 AM CDT Body Mass Index 2531.08 01/04/2015 11:23 AM CDT Body Mass Index Percentile 100.00% 01/04/2015 11: 23 AM CDT Growth Chart: [facility] (Boys, 2-2 0 Years) documented in this encounter Progress Notes * Karuna Sparks APRN-CNP - 01/04/2015 11:26 AM CDT Sick Visit Name: Edil Hanna Age: 14 y.o. Accompanied By: Mother, Sister CC: Chief Complaint Patient presents with ??? Ear Pain Right ear HPI: Edil is a 14 yr old male who is here today for evaluation of right ear pain. Mother called theoffice yesterday and was Rx ciprodex for otitis externa. Mother concerned that he is still in pain and the gtt are not able to get in his ear. No cold sxs, vomiting, diarrhea, or rashes noted. Current Medications: Current Outpatient Prescriptions Medication Sig Dispense Refill ??? ciprofloxacin-dexamethasone (CIPRODEX) 0.3-0.1 % otic suspension Instill 4 Drops into left ear 2 times daily for 7 days Shake well before using. 7.5 mL 0 No current facility-administered medications for this visit. Allergies: No Known Allergies PE: Temp(Src) 98.8 ??F (Temporal) Wt 40.824 kg (90 lb) BMI 2531.09 kg/m2 General alert, cooperative, no distress Skin Skin color, texture, turgor normal. No rashes or lesions Head NCAT w/o lesions or tenderness Eyes/Ears sclera and conjunctiva clear bilateral TM's and left external ear canal normal, right external canal inflamed Nose/ Throat nose:normal, throat: no erythema or exudates noted. Teeth and gums normal Heart regular rate and rhythm, S1, S2 normal, no murmur, click, rub or gallop Lungs clear to auscultation bilaterally Extremities no cyanosis, edema Impression / Plan: 1. Otitis externa. Continue ciprodex gtt as ordered. Ibuprofen PRN for pain. Call the office on Tuesday if there is no improvement in sxs and will start oral abx. documented in this encounter Plan of Treatment Not on file documented as of this encounter Visit Diagnoses Diagnosis Otitis externa, right- Primary documented in this encounter Care Teams A Class Lineman Relationship Specialty Start Date End Date Heath Bello MD [address] [address] PCP - General 07/24/09 03/03/20 documented as of this encounter
--- OUTSIDE RECORDS SUMMARY | 2024-07-21 11:41 | XMS_ITS | Encounter Summary ---
Author Organization [facility] Address [facility] [place] [address] Care Team Providers Care Bi Data Architect Name Role Phone Heath Bello MD Primary Care Provider [phone] Reason for Visit * Reason Onset Date Comments Ear Problem 01/06/2015 Encounter Details Date Type Department Care Team (Late st Contact Info) Description 01/06/2015 Telephone [facility] - Pediatrics [address] [facility] [address] [place] [address] Karuna Sparks APRN-CNP [address] [facility] [place] [address] Ear Problem Social History Tobacco [...] encounter Miscellaneous Notes * Telephone Encounter - Vashti Arenas RN - 01/06/2015 11:11 AM CDT Mom verbalized understanding and agrees w/POC * Telephone Encounter - Karuna Sparks APRN-CNP - 01/06/2015 10:06 AM CDT Continue ciprodex gtt as ordered. Augmentin eprescribed. Call if sxs persist or with questions/concerns. * Telephone Encounter - Vashti Arenas RN - 01/06/2015 9:46 AM CDT Mom states 14 yr old Edil Hanna was seen in the office on Thursday 01/04, DX was [facility], Rxwas Ciprodex drops. Mom states he is still laying on the couch or in bed, she is giving ibuprofen around the clock for the pain. His sister who was seen for same thing is much better and acting her normal self. Mom states she is having trouble getting the drops in his ear because it is so painful. Also, in the past, Edil needed an oral antibiotic in this same situation and that is what she is asking for. Please advise, thanks documented in this encounter Plan of Treatment Not on file documented as of this encounter Visit Diagnoses Not on filedocumented in this encounter Care Teams Bi Data Architect Relationship Specialty Start Date End Date Heath Bello MD [address] [facility] [address] [address] PCP - General 07/24/09 03/03/20 documented as of this encounter
--- OUTSIDE RECORDS SUMMARY | 2024-07-21 11:41 | XMS_ITS | Encounter Summary ---
Author Organization [facility] Address [facility] [facility] [place] [address] Care Team Providers Care Plunket Nurse Name Role Phone Heath Bello MD Primary Care Provider [phone] Reason for Visit * Reason Comments Ear Pain both ears X 4 days Sore Throat Encounter Details Date Type Department Care Team (Late st Contact Info) Description 08/14/2012 7:00 PM PIGMENT PRESSER Office Visit [facility] Medical [facility] - Pediatrics [address] [facility] [address] [place] [phone] Karuna Sparks, ATILIO-CLINICAL LAB CLERK [address] [facility] [address] [place] [address] AOM (acute otitis media) (Primary Dx) Social History Tobacco Use Types Packs/Day Years Used Date Smoking Tobacco: Never Assessed Sex and Gender Information Value Date Recorded Sex Assigned at Not on file Gender Identity Not on file Sexual Orientation Not on file documented as of this encounter Last Filed Vital Signs Vital Sign Reading Time Taken Comments Blood Pressure - - Pulse - - Temperature 36.7 ??C (98.1 ??F) 08/14/2012 5:00 PM CS T Respiratory Rate - - Oxygen Saturation - - Inhaled Oxygen Concentration - - Weight 30 kg (66 lb 3.2 oz) 08/14/2012 5:[address] Height 136.5 cm (4' 5.75 ) 08/14/2012 5:00 PM CS T Body Mass Index 16.11 08/14/2012 5:00 PM PIGMENT PRESSER Body Mass Index Percentile 40.32% 08/14/2012 5:0 0 PM PIGMENT PRESSER Growth Chart: [facility] (Boys, 2-2 0 Years) documented in this encounter Progress Notes * Karuna Sparks APRN - 08/14/2012 5:06 PM CST Sick Visit Name: Edil Hanna Age: 11 y.o. Accompanied By: Mother CC: Chief Complaint Patient presents with ??? Ear Pain both ears X 4 days ??? Sore Throat HPI: Ear pain x 4 days. Worse today. No fevers noted. Also has sore throat. No cold sxs noted. Current Medications: Current Outpatient Prescriptions Medication Sig Dispense Refill ??? Acetaminophen (TYLENOL PO) Allergies: No Known Allergies PE: Temp(Src) 98.1 ??F (Temporal Artery) Wt 30.028 kg (66 lb 3.2 oz) BMI 16.11 kg/m2 General alert, cooperative, no distress Skin Skin color, texture, turgor normal. No rashes or lesions Head NCAT w/o lesions or tenderness Eyes/Ears sclera and conjunctiva clear right TM red, dull, left TM red, dull Nose/ Throat nose:normal, throat: no erythema or exudates noted. Teeth and gums normal Neck supple, non-tender, with full ROM, and no lymphadenopathy Nodes no lymphadenopathy Heart regular rate and rhythm, S1, S2 normal, no murmur, click, rub or gallop Lungs clear to auscultation bilaterally Abdomen soft, non-tender, non distended, normal BS Extremities no cyanosis, edema Impression / Plan: 1. AOM. amoxicillin 600 mg po BID x 10 days. Call if sxs persist or get worse. ENT PRESSER documented in this encounter Plan of Treatment Not on file documented as of this encounter Visit Diagnoses Diagnosis AOM (acute otitis media)- Primary Unspecified otitis media documented in this encounter Care Teams Plunket Nurse Relationship Specialty Start Date End Date Heath Bello MD [address] [place] [address] PCP - General 07/24/09 03/03/20 documented as of this encounter
--- OUTSIDE RECORDS SUMMARY | 2024-07-21 11:41 | XMS_ITS | Encounter Summary ---
Author Organization [facility] Address [facility] [place] [address] Care Team Providers Care Grain Drier Operator Name Role Phone Heath Bello MD Primary Care Provider [phone] Reason for Visit * Reason Comments Cold Symptoms since last week Fever x 4 days, up to 102. 6, with headache Sore Throat x 3 days Encounter Details Date Type Department Care Team (Late st Contact Info) Description 08/31/2010 4:15 PM KILN TRANSFER OPERATOR Office Visit [facility] Medical [facility] - Pediatrics [address] [facility] [address] [place] [address] Elana Nogueira MD [address] [facility] [address] [place] [address] Acute pharyngitis (Primary Dx); Acute URI Social History Tobacco Use Types Packs/Day Years Used Date Smoking Tobacco: Never Assessed Sex and Gender Information Value Date Recorded Sex Assigned at Not on file Gender Identity Not on file Sexual Orientation Not on file documented as of this encounter Last Filed Vital Signs Vital Sign Reading Time Taken Comments Blood Pressure - - Pulse - - Temperature 36.9 ??C (98.5 ??F) 08/31/2010 4:36 PM CS T Respiratory Rate - - Oxygen Saturation - - Inhaled Oxygen Concentration - - Weight 23.6 kg (52 lb) 08/31/2010 4:36 PM KILN TRANSFER OPERATOR Height 127.6 cm (4' 2.25 ) 08/31/2010 4:36 PM CS T Body Mass Index 14.48 08/31/2010 4:36 PM KILN TRANSFER OPERATOR Body Mass Index Percentile 17.03% 08/31/2010 4:3 6 PM KILN TRANSFER OPERATOR Growth Chart: [facility] (Boys, 2-2 0 Years) documented in this encounter Patient Instructions * Patient Instructions* Elana Nogueira MD - 08/31/2010 4:58 PM KILN TRANSFER OPERATOR Treat symptomatically with tylenol and ibuprofen. TRANSFER OPERATOR documented in this encounter Progress Notes * Elana Nogueira MD - 08/31/2010 10:20 PM CST Subjective: Chief Complaint Patient presents with ??? Cold Symptoms since last week ??? Fever x 4 days, up to 102.6, with headache ??? Sore Throat x 3 days History was provided by the mother. Edil Hanna is a 9 y.o. male here for evaluation of cold symptoms. Symptoms began 4 days ago, with unchanged course since that time. Associated symptoms include rhinorrhea (clear in color), nasal congestion, sore throat, and fever (max temp 102.6). Oral intake has been good, normal activity, and normal urine output. Mom denies cough, vomiting, diarrhea, or rash. No current outpatient prescriptions on file. No known drug allergies Objective: Temp(Src) 98.5 ??F (Temporal Artery) Wt 52 lb (23.587 kg) General: alert, cooperative, no distress HEENT: pharynx erythematous without exudate and nasal mucosa congested, clear rhinorrhea Neck: supple, symmetrical, trachea midline and no adenopathy. Lungs: clear to auscultation bilaterally Heart: regular rate and rhythm, S1, S2 normal, no murmur, click, rub or gallop Abdomen: soft without mass, non-tender, with normal bowel sounds Skin: Skin color, texture, turgor normal. No rashes or lesions Extremities: extremities normal, atraumatic, no cyanosis or edema Neurological: alert, oriented x 3, no defects noted in general exam. Office Visit on 08/31/10 STREP A SCREEN - POINT OF CARE (AMB) Component Value Range ??? Strep A Rapid NEG NEGATIVE - POSITVE ??? Strep A INTERNAL CONTROL NEGATIVE - POSITIVE Assessment: Upper respiratory infection/Acute pharyngitis - RSS negative, most likely viral. Plan: Treat symptomatically Instruction provided in the use of fluids, vaporizer, acetaminophen, and other OTC medication for symptom control. Extra fluids Analgesics as needed, dose reviewed. Follow up as needed should symptoms fail to improve. TRANSFER OPERATOR documented in this encounter Plan of Treatment Not on file documented as of this encounter Procedures Procedure Name Priority Date/Time Associated Diagnosis Comments STREP A SCREEN - POINT OF CARE (AMB) Routine 08/31/2010 5:05 PM KILN TRANSFER OPERATOR Acute pharyngitis documented in this encounter Results * STREP A SCREEN - POINT OF CARE (AMB) (08/31/2010 5:05 PM KILN TRANSFER OPERATOR) Strep A Rapid POCT NEG NEGATIVE - POSITVE Strep A Internal Control NEGATIVE - POSITIVE ENTIRE THROAT (SURFACE REGION OF NECK) / Unknown Elana Nogueira MD LAB - POINT OF CARE ORDERABLES documented in this encounter Visit Diagnoses Diagnosis Acute pharyngitis- Primary Acute URI Acute upper respiratory infections of unspecified site documented in this encounter Care Teams Grain Drier Operator Relationship Specialty Start Date End Date Heath Bello MD [address] [address] PCP - General 07/24/09 03/03/20 documented as of this encounter
--- OUTSIDE RECORDS SUMMARY | 2024-07-21 11:41 | XMS_ITS | Encounter Summary ---
Author Organization [facility] Address [address] [place] [address] Care Team Providers Care Electric Operator Name Role Phone Heath Bello MD Primary Care Provider Elana Nogueira MD Unavailable [phone] Encounter Details Date Type Department Care Team (Late st Contact Info) Description 06/23/2009 [facility] Outpatient Visit [address] [address] Danny Agarwal MD [address] [place] [address] 1 [place] [address] Social History Tobacco Use Types [...] on filedocumented in this encounter Care Teams Electric Operator Relationship Specialty Start Date End Date Heath Bello MD [address] [address] PCP - General 07/24/09 03/03/20 Elana Nogueira MD [address] [place] [address] [address] [place] [address] PCP - Attributed-[employer] 06/10/19 0 documented as of this encounter
--- OUTSIDE RECORDS SUMMARY | 2024-07-21 11:41 | XMS_ITS | Encounter Summary ---
Author Organization [facility] Address [facility] [facility] [place] [address] Care Team Providers Care International Trade Analyst Name Role Phone Heath Bello MD Primary Care Provider Reason for Visit * Reason Comments Complete Physical Exam 11 year old Encounter Details Date Type Department Care Team (Late st Contact Info) Description 01/04/2012 1:30 PM CDT Office Visit [facility] Medical [facility] - Pediatrics [address] [place] [phone] Heath Bello MD [address] [address] Well child visit (Primary Dx); Screening for lipoid disorders Social History Tobacco Use Types Packs/Day Years Used Date Smoking Tobacco: Never Assessed Sex and Gender Information Value Date Recorded Sex Assigned at Not on file Gender Identity Not on file Sexual Orientation Not on file documented as of this encounter Last Filed Vital Signs Vital Sign Reading Time Taken Comments Blood Pressure 98/56 01/04/2012 1:51 PM CDT Pulse - - Temperature 36.8 ??C (98.3 ??F) 01/04/2012 1:51 PM CD T Respiratory Rate - - Oxygen Saturation - - Inhaled Oxygen Concentration - - Weight 28.1 kg (62 lb) 01/04/2012 1:51 PM CDT Height 134 cm (4' 4.75 ) 01/04/2012 1:51 PM CDT Body Mass Index 15.67 01/04/2012 1:51 PM CDT Body Mass Index Percentile 36.30% 01/04/2012 1:5 1 PM CDT Growth Chart: [facility] (Boys, 2-2 0 Years) documented in this encounter Patient Instructions * Patient Instructions* Heath Bello MD - 01/04/2012 1:55 PM CDT Today's Percentiles 39.12% of growth percentile based on [id number]. 43.89% of growth percentile based on qvlzbte-fti-mew. Today and Previous Weights and Heights Wt Readings from Last 3 Encounters: 01/04/12 62 lb (28.123 kg) (39.12%) 11/19/11 60 lb 6 oz (27.386 kg) (35.95%) 09/02/11 59 lb 9.6 oz (27.034 kg) (38.39%) Ht Readings from Last 3 Encounters: 01/04/12 4' 4.75 (1.34 m) (43.89%) 11/19/11 4' 4.25 (1.327 m) (39.77%) 09/02/11 4' 4 (1.321 m) (43.17%) documented in this encounter Progress Notes * Heath Bello MD - 01/04/2012 1:55 PM CDT 7-10 Year Old Well Clinical Asst Visit Name: Edil Hanna Age: 11 y.o. Accompanied By: Mother, Brother(s), Sister(s) Chief Complaint Patient presents with ??? Complete Physical Exam 11 year old Concerns: None Diet: Eats well balanced meals, good variety: Yes and No - a little picky at times Limits foods high in fat or calorie content: Yes and No BM: Nl bowels movements: Yes Voiding: Any voiding difficulties: No School: Doing well in school. and Grade in school: 4th in the Fall Does well Soccer, basketball and baseball Interim Illness: The patient returns today for routine well childbirth and infant care teacher. Illnesses since our last visit include: none Allergies: No Known Allergies Medicines: Current Outpatient Prescriptions Medication Sig Dispense Refill ??? Acetaminophen (TYLENOL PO) PE: OBJECTIVE: BP 98/56 Temp(Src) 98.3 ??F (Temporal Artery) Wt 62 lb (28.123 kg) BMI 15.67 kg/m2 Wt Readings from Last 3 Encounters: 01/04/12 62 lb (28.123 kg) (39.12%) 11/19/11 60 lb 6 oz (27.386 kg) (35.95%) 09/02/11 59 lb 9.6 oz (27.034 kg) (38.39%) Ht Readings from Last 3 Encounters: 01/04/12 4' 4.75 (1.34 m) (43.89%) 11/19/11 4' 4.25 (1.327 m) (39.77%) 09/02/11 4' 4 (1.321 m) (43.17%) 39.12% of growth percentile based on igteql-fni-wie. 43.89% of growth percentile based on tenhvnn-zsf-gsl. GENERAL: Alert, well developed, well nourished SKIN: No rash or lesions HEAD: Normocephalic EYES: PERRL, EOMI, funduscopic normal EARS: TM's WNL, canals clear NOSE: Passages clear MOUTH: OP clear, oral lesions, tonsils nl, dentition appropriate, no excessive dental caries NECK: Thyroid not enlarged, [...] nutrition, well balanced diet, safety,and general well childbirth and infant care teacher. Limit TV and video/computer game time. Encourage routine exercise. Parent instructed to call if any questions, concerns, problems or other health issues. Plan per orders. Immunizations UTD Immunizations benefits and risks discussed if applicable including site soreness, fever and allergic reaction. Next Appointment: 1 year documented in this encounter Plan of Treatment Not on file documented as of this encounter Procedures Procedure Name Priority Date/Time Associated Diagnosis Comments LIPID PROFILE+GLUCOSE - POINT OF CARE (AMB) Routine 01/04/2012 2:57 PM CDT Screening for lipoid disorders documented in this encounter Results * LIPID PROFILE+GLUCOSE - POINT OF CARE [...] documented in this encounter Visit Diagnoses Diagnosis Screening for lipoid disorders documented in this encounter Care Teams International Trade Analyst Relationship Specialty Start Date End Date Heath Bello MD [address] [place] [address] PCP - General 07/24/09 03/03/20 documented as of this encounter
--- OUTSIDE RECORDS SUMMARY | 2024-07-21 11:41 | XMS_ITS | Encounter Summary ---
Author Organization [facility] Address [address] [place] [address] Care Team Providers Care Acidity Tester Name Role Phone Heath Bello MD Primary Care Provider [phone] Reason for Visit * Reason Comments Injury Hand right hand injury Encounter Details Date Type Department Care Team (Latest Contact Info) Description 10/15/2014 2:30 PM CDT - 10/15/2014 11:59 PM CDT Hospital Encounter [facility] Pediatrics - Orthopedics [address] [place] [address] Lena Fritz MD Discharge Disposition: Home or Self Care Social [...] Pressure - - Pulse - - Temperature - - Respiratory Rate - - Oxygen Saturation - - Inhaled Oxygen Concentration - - Weight 39.5 kg (87 lb) 10/15/2014 2:47 PM CDT Height 151.8 cm (4' 11.75 ) 10/15/2014 2:47 PM C DT Body Mass Index 17.13 10/15/2014 2:47 PM CDT Body Mass Index Percentile 37.54% 10/15/2014 2:4 7 PM CDT Growth Chart: [facility] (Boys, 2-2 0 Years) documented in this encounter Discharge Instructions * Patient Instructions* Corey Simmons PA-C - 10/15/2014 2:58 PM CDT ORTHOPAEDIC CLINIC DISCHARGE INSTRUCTIONS SHEET Follow Up: Please make a return appointment for 3 week(s) Wear splint for 3 weeks. May remove for washing/bathing. Limit strenuous activity--no physical education activities or sports activities with the right handuntil released. School excuse: 10/15/2014 Ibuprofen (over the counter medication) may be used per instructions. If you have any questions or concerns in the interim, or if you need to schedule surgery for your child, you may contact our orthopedic office at . If you need to make a clinic appointment, please call . documented in this encounter Progress Notes * Corey Simmons PA-C - 10/15/2014 3:06 PM CDT PEDIATRIC ORTHOPAEDIC CLINIC NOTE NAME: Edil Hanna DATE OF SERVICE: 10/15/2014 DATE: 2000 PCP: Heath Bello HISTORY: Edil Hanna is a 14 y.o. 0 m.o. male who presents 1 week(s) status post a right hand injury. He was sliding into home plate when the catcher fell on his hand. Edil Hanna was splinted atan outside facility and presents for further evaluation. The patient rates his pain as a 0 out of 10. The patient denies new onset of numbness in his upper extremities. PAST MEDICAL HISTORY: Past Medical History Diagnosis Date ??? NEGATIVE PAST MEDICAL HISTORY - SEE PROBLEM LIST PAST SURGICAL HISTORY: Past Surgical History Procedure Laterality Date ??? Negative surgical history MEDICATIONS: No current outpatient prescriptions on file. ALLERGIES: Allergies as of 10/15/2014 ??? (No Known Allergies) IMMUNIZATIONS: Immunization status: stated as current, but no records available. SOCIAL HISTORY: Patient lives with his parents. he does attend school. FAMILY HISTORY: Negative for any genetic conditions affecting children. ROS: A 12 point review of systems was obtained today and is positive for what is stated above. PHYSICAL EXAMINATION: Wt 87 lb (39.463 kg) BMI 17.13 kg/m2 General appearance: alert, cooperative, no distress. He has good head control. No rashes or abnormal dyspigmentation Extremities: The uninjured left upper extremity was examined and demonstrated normal skin, normal range of motion and alignment of all joint, normal motor, sensory and vascular examination, and was without pain. It was used for comparison when examining the injured right upper extremity. General appearance: no acute distress The examination was performed out of splint/cast Skin: normal Swelling: minimal at 5th MCP Tenderness: mild, located at 5th MCP. Deformity: No ROM: normal, full and equal bilaterally Strength: limited by pain Gait: normal Neurological Exam: normal Vascular Exam: normal RADIOGRAPHS: AP, lateral, & oblique xrays of the right hand were taken and assessed today. -Radiographic Assessment: They show a subtle fracture at the 5th metacarpal neck. ASSESSMENT: 1. Fracture of fifth metacarpal bone of right hand, closed, initial encounter PLAN: We recommend the patient go into a velcro splint today. The patient tolerated this well. Fracture precautions were reviewed today. The patient will stay out of PE/sports involving the right hand until further notice. The patient will follow up in 3 week(s) for clinical examination, no xrays will be needed. They will call in the interim with questions or concerns. * Talia Heath - 10/15/2014 2:48 PM CDT Pt here for right hand injury that happened about a week ago. Pt was playing baseball when he slid into home plate and the catcher fell on his hand. Pt was seen at OSH and had xrays done. Pt was placed into a splint and referred here. documented in this encounter Plan of Treatment Not on file documented as of this encounter Visit Diagnoses Diagnosis Fracture of fifth metacarpal bone of right hand, closed, initial encounter- Primary Closed fracture of neck of metacarpal bone(s) documented in this encounter Care Teams Acidity Tester Relationship Specialty Start Date End Date Heath Bello MD [address] [place] [address] PCP - General 07/24/09 03/03/20 documented as of this encounter
--- OUTSIDE RECORDS SUMMARY | 2024-07-21 11:41 | XMS_ITS | Encounter Summary ---
Author Organization [facility] Address [facility] [facility] [place] [facility] [place] [address] Care Team Providers Care Per Diem Physical Therapist Name Role Phone Heath Bello MD Primary Care Provider [phone] Reason for Visit * Reason Onset Date Comments Concerns 03/06/2018 Encounter Details Date Type Department Care Team (Late st Contact Info) Description 03/06/[address] [facility] Medical [facility] - Pediatrics [address] [facility] [address] [place] [address] Elana Nogueira MD [address] [facility] [address] [place] [address] Concerns Social History Tobacco Use Types Packs/Day Years Used Date Smoking Tobacco: Never Alcohol Use Standard Drinks/Week Comments Not Asked 0 (1 standard drink = 0.6 oz pur e alcohol) Sex and Gender Information Value Date Recorded Sex Assigned at Not on file Gender Identity Not on file Sexual Orientation Not on file documented as of this encounter Miscellaneous Notes * Telephone Encounter - Elana Nogueira MD - 03/06/2018 5:29 PM CDT Spoke with Mom, addressed questions about possible side effects of medicine. * Telephone Encounter - Justino Webb RN - 03/06/2018 9:34 AM CDT Mom requesting a phone call from Dr. Nogueira. Mom states that pt was prescribed methylphenidate but they have not started this yet as she is concerned about other issues . Mom is available any time today for call. documented in this encounter Plan of Treatment Not on file documented as of this encounter Goals Goal Patient Goal Type Associated Problems Recent Progress Patient-Stated? Author Use safety retraint in car Lifestyle On track( 019 1:39 PM CDT) No Massiel Quintanilla documented as of this encounter Visit Diagnoses Not on filedocumented in this encounter Care Teams Per Diem Physical Therapist Relationship Specialty Start Date End Date Heath Bello MD [address] [facility] [address] [address] PCP - General 07/24/09 03/03/20 documented as of this encounter
--- OUTSIDE RECORDS SUMMARY | 2024-07-21 11:41 | XMS_ITS | Encounter Summary ---
Author Organization [facility] Address [address] [place] [address] Care Team Providers Care Corn Shredder Name Role Phone Heath Bello MD Primary Care Provider [phone] Reason for Visit * Reason Comments Follow-up right hand injury Encounter Details Date Type Department Care Team (Latest Contact Info) Description 11/05/2014 8:00 AM CDT - 11/05/2014 11:59 PM CDT Hospital Encounter [facility] - Orthopedics [address] [facility] [place] [place] [address] Corey Simmons PA-C [address] [place] [id number] Discharge Disposition: Home or Self Care Social [...] Pressure - - Pulse - - Temperature 36.6 ??C (97.8 ??F) 11/05/2014 8:08 AM CD T Respiratory Rate - - Oxygen Saturation - - Inhaled Oxygen Concentration - - Weight 40.3 kg (88 lb 12 oz) 11/05/2014 8:08 AM CDT Height 153.5 cm (5' 0.43 ) 11/05/2014 8:08 AM CD T Body Mass Index 17.09 11/05/2014 8:08 AM CDT Body Mass Index Percentile 36.16% 11/05/2014 8:0 8 AM CDT Growth Chart: [facility] (Boys, 2-2 0 Years) documented in this encounter Discharge Instructions * Patient Instructions* Corey Simmons PA-C - 11/05/2014 8:21 AM CDT ORTHOPAEDIC CLINIC DISCHARGE INSTRUCTIONS SHEET Follow Up: As needed only May resume PE, sports, and all activities as tolerated. School excuse: 11/05/2014 Ibuprofen (over the counter medication) may be used per instructions. If you have any questions or concerns in the interim, or if you need to schedule surgery for your child, you may contact our orthopedic office at . If you need to make a clinic appointment, please call . documented in this encounter Progress Notes * Corey Simmons PA-C - 11/05/2014 8:21 AM CDT PEDIATRIC ORTHOPAEDIC CLINIC NOTE NAME: Edil Hanna DATE OF SERVICE: 11/05/2014 DATE: 2000 PCP: Heath Bello HISTORY: Edil Hanna is a 14 y.o. 1 m.o. male who presents 4 week(s) status post a right 5th metacarpal neck fracture. Edil Hanna was treated with a velcro splint and presents for follow up evaluation. He states that he has been doing well and not having any pain or problems. The patient rateshis pain as a 0 out of 10. The patient denies new onset of numbness in his upper extremities. MEDICATIONS: None ALLERGIES: Allergies as of 11/05/2014 ??? (No Known Allergies) IMMUNIZATIONS: Immunization status: stated as current, but no records available. PHYSICAL EXAMINATION: General appearance: alert, cooperative, no distress. He [...] performed out of splint/cast Skin: normal Swelling: none Tenderness: none throughout the hand. Deformity: No ROM: normal, full and equal bilaterally Strength: normal and equal bilaterally Gait: normal Neurological Exam: normal Vascular Exam: normal RADIOGRAPHS: None today ASSESSMENT: 1. Fracture of fifth metacarpal bone of right hand, with routine healing, subsequent encounter PLAN: We reassured the family that he is doing well clinically, and he may now discontinue the splint. he may now gradually resume all activities as tolerate, but will wear the splint with activitiesfor 2 more weeks. If he has any difficulties returning to activities, or any pain/problems in 3-4 weeks, we recommend they return to clinic. If he is doing well at that point, they do not need to follow up for this injury. The family was understanding of this plan and will follow up PRN. documented in this encounter Plan of Treatment Not on file documented as of this encounter Visit Diagnoses Diagnosis Fracture of fifth metacarpal bone of right hand, with routine healing, subsequent encounter- Primary documented in this encounter Care Teams Corn Shredder Relationship Specialty Start Date End Date Heath Bello MD [address] [address] PCP - General 07/24/09 03/03/20 documented as of this encounter
--- OUTSIDE RECORDS SUMMARY | 2024-07-21 11:41 | XMS_ITS | Encounter Summary ---
Author Organization [facility] Address [facility] [place] [address] Care Team Providers Care Roading Engineer Name Role Phone Heath Bello MD Primary Care Provider [phone] Reason for Visit * Reason Comments Fever x1 day Cough x1 week off and on Congestion x1 week off and on Headache x1 week off and on Encounter Details Date Type Department Care Team (Late st Contact Info) Description 07/22/2016 12:15 PM RING BARKER OPERATOR Office Visit [facility] - Pediatrics [address] [facility] [address] [place] [phone] Karuna Sparks, ATILIO-LATHE OPERATOR [address] [facility] [address] [place] [address] Acute mucoid otitis media of both ears (Primary Dx); Fever, unspecified fever cause; Influenza B Social History Tobacco Use Types Packs/Day Years [...] Taken Comments Blood Pressure - - Pulse 103 07/22/2016 12:19 PM RING BARKER OPERATOR Temperature 38.3 ??C (100.9 ??F) 07/22/2016 12:19 PM RING BARKER OPERATOR Respiratory Rate - - Oxygen Saturation 97% 07/22/2016 12:19 PM RING BARKER OPERATOR Inhaled Oxygen Concentration - - Weight 55.5 kg (122 lb 6.4 oz) 07/22/2016 12:19 PM RING BARKER OPERATOR Height - - Body Mass Index - - documented in this encounter Patient Instructions * Patient Instructions* Clare Karuna ATILIO Warren-LATHE OPERATOR - 07/22/2016 12:46 PM RING BARKER OPERATOR Images from the original note were not included. Influenza in Children WHAT YOU NEED TO KNOW: What is influenza? Influenza (the flu) is an infection caused by the influenza virus. The flu is easily spread when an infected person coughs, sneezes, or has close contact with others. Your child may be able to spread the flu to others for 1 week or longer after signs or symptoms appear. What are the signs and symptoms of the flu? Severe symptoms are more likely in children younger than 5. They are also more likely in children who have heart or lung disease, or a weak immune system. Signs and symptoms include the following: ?? Fever and chills ?? Headaches, body aches, earaches, and muscle or joint pain ?? Dry cough, runny or stuffy nose, and sore throat ?? Loss of appetite, nausea, vomiting, or diarrhea ?? Tiredness ?? Fast breathing, trouble breathing, or chest pain How is the flu diagnosed? Your child's healthcare provider will examine your child. Tell him if your child has health problems such as epilepsy or asthma. Tell him if your child has been around sick people or traveled recently. A sample of fluid may be collected from your child's nose or throat to be tested for the flu virus. How is the flu treated? Most healthy children get better within a week. Your child may need any of the following: ?? Acetaminophen decreases pain and fever. It is available without a doctor's order. Ask how much to give your child and how often to give it. Follow directions. Acetaminophen can cause liver damage if not taken correctly. ?? NSAIDs , such as ibuprofen, help decrease swelling, pain, and fever. This medicine is available with or without a doctor's order. NSAIDs can cause stomach bleeding or kidney problems in certain people. If your child takes blood thinner medicine, always ask if NSAIDs are safe for him. Always readthe medicine label and follow directions. Do not give these medicines to children under 6 months of age without direction from your child's healthcare provider. ?? Antivirals help fight a viral infection. How can I manage my child's symptoms? ?? Help your child rest and sleep as much as possible as he recovers. ?? Give your child liquids as directed to help prevent dehydration. He may need to drink more than usual. Ask your child's healthcare provider how much liquid your child should drink each day. Good liquids include water, fruit juice, or broth. ?? Use a cool mist humidifier to increase air moisture in your home. This may make it easier for your child to breathe and help decrease his cough. How can I help prevent the spread of the flu? ?? Have your child wash his hands often. Use soap and water. Encourage him to wash his hands after he uses the bathroom, coughs, or sneezes. Use gel hand cleanser when soap and water are not available. Teach him not to touch his eyes, nose, or mouth unless he has washed his hands first. ?? Teach your child to cover his mouth when he sneezes or coughs. Show him how to cough into a tissue or the bend of his arm. ?? Clean shared items with a germ-killing hat cleaner. Clean table surfaces, doorknobs, and light switches. Do not share towels, silverware, and dishes with people who are sick. Wash bed sheets, towels, silverware, and dishes with soap and water. ?? Wear a mask over your mouth and nose when you are near your sick child. ?? Keep your child home if he is sick. Keep your child away from others as much as possible while he recovers. ?? Get your child vaccinated. The influenza vaccine helps prevent influenza (flu). Everyone older than 6 months should get a yearly influenza vaccine. Get the vaccine as soon as it is available, usually in April or May each year. Your child will need two vaccines during the first year they get the vaccine. The 2 vaccines should be given 4 or more weeks apart. It is best if the same type ofvaccine is given both times. Call 911 for any of the following: ?? Your child has fast breathing, trouble breathing, or chest pain. ?? Your child has a seizure. ?? Your child does not want to be held and does not respond to you, or he does not wake up. When should I seek immediate care? ?? Your child has a fever with a rash. ?? Your child's skin is blue or santos. ?? Your child's symptoms got better, but then came back with a fever or a worse cough. ?? Your child will not drink liquids, is not urinating, or has no tears when he cries. ?? Your child has trouble breathing, a cough, and he vomits blood. When should I contact my child's healthcare provider? ?? Your child's symptoms get worse. ?? Your child has new symptoms, such as muscle pain or weakness. ?? You have questions or concerns about your child's condition or care. CARE AGREEMENT: You have the right to help plan your child's care. Learn about your child's health condition and how it may be treated. Discuss treatment options with your child's caregivers to decide what care you want for your child. The above information is an range aid only. It is not intended as medicaladvice for individual conditions or treatments. Talk to your doctor, nurse or pharmacist before following any medical regimen to see if it is safe and effective for you. ?? 2016 [employer]. Information is for End User's use only and may not be sold, redistributed or otherwise used for commercial purposes. All illustrations and images included in CareNotes?? are the copyrighted property of [employer] or [employer]. BARKER OPERATOR documented in this encounter Progress Notes * Karuna Sparks APRN-CNP - 07/22/2016 12:28 PM CST Sick Visit Name: Edil Hanna Age: 15 y.o. Accompanied By: Mother CC: Chief Complaint Patient presents with ??? Fever x1 day ??? Cough x1 week off and on ??? Congestion x1 week off and on ??? Headache x1 week off and on HPI: Edil is a 15 yr old male who presents today for evaluation of cough and congestion for over a week. Fever first noted yesterday. Tmax 102.4. Associated sxs include: GUERRA. Normal appetite and activity level. No vomiting, diarrhea, or rashes. Current Medications: No current outpatient prescriptions on file. No current facility-administered medications for this visit. Allergies: No Known Allergies PE: Pulse 103 Temp 100.9 ??F (Temporal) Wt 55.5 kg (122 lb 6.4 oz) SpO2 97% General alert, cooperative, no distress Skin Skin color, texture, turgor normal. No rashes or lesions Head NCAT w/o lesions or tenderness Eyes/Ears sclera and conjunctiva clear Mucoid fluid noted behind bilateral TM's Nose/ Throat nose:clear rhinorrhea and mucosal erythema, throat: no erythema or exudates noted. Teeth [...] cyanosis, edema Impression / Plan: 1. AOM. zithromax 500 mg po today, then 250 mg po once daily x 4 days. Med and possible side effects discussed. Encouraged to call with questions/concerns. 2. Influenza B positive. Influenza Handout given. Continue symptomatic care. Encourage fluid intake. Tylenol or ibuprofen dosed to weight as needed. Call if sxs persist or get worse. BARKER OPERATOR documented in this encounter Plan of Treatment Not on file documented as of this encounter Goals Goal Patient Goal Type Associated Problems Recent Progress Patient-Stated? Author Use safety retraint in car Lifestyle On track( 019 1:39 PM CDT) No Massiel Quintanilla documented as of this encounter Procedures Procedure Name Priority Date/Time Associated Diagnosis Comments INFLUENZA A+B - POINT OF CARE (AMB) Routine 07/22/2016 Fever, unspecified fever cause documented in this encounter Results * (ABNORMAL) INFLUENZA A+B - POINT OF CARE (AMB) (07/22/2016) Influenza A Antigen Rapid Negative Negative Influenza B Antigen Rapid Positive(A) Negative Influenza Internal Control present NEGATIVE - POSITIVE Influenza Lot Number [id number] Influenza Expiration Date 10/08/17 Other SPECIMEN FROM NASOPHARYNGEAL STRUCTURE / Unknown 07/22/2016 Karuna Sparks KERRICK KLEANER OPERATOR-LATHE OPERATOR LAB - POINT OF CA RE ORDERABLES documented in this encounter Visit Diagnoses Diagnosis Acute mucoid otitis media of both ears- Primary Fever, unspecified fever cause Influenza B Influenza with other respiratory manifestations documented in this encounter Care Teams Roading Engineer Relationship Specialty Start Date End Date Heath Bello MD [address] [address] PCP - General 07/24/09 03/03/20 documented as of this encounter
--- OUTSIDE RECORDS SUMMARY | 2024-07-21 11:42 | XMS_ITS | Clinical Summary ---
Author Organization [facility] Address [address] [place] [address]. [place], [place] [id number] [place] [address] Care Team Providers Care Biometrics Consultant Name Role Phone Unavailable Primary Care Provider Unavailabl e Social History Tobacco Use Types Packs/Day Years Used Date Smoking Tobacco: Never Assessed Sex and Gender Information Value Date Recorded Sex Assigned at Not on file Legal Sex Male 7:05 PM CDT Gender Identity Not on file Sexual Orientation Not on file Plan of Treatment Health Maintenance Due Date Last Done Comments Annual Physical 2005 HPV Vaccines (1 - Male 3-dos e series) 2017 Hepatitis C 2020 DTaP, Tdap and Td Vaccines ( 1 - Tdap) 2021 Hepatitis B Vaccines (1 of 3 - 19+ 3-dose series) 2021 COVID-19 Vaccine ( - 2023-2 5 season) 2024 Influenza Adult (#1) 2024 Meningococcal Vaccine Aged Out No tarun meg eligible based on patient's age to complete this topic Pneumococcal Vaccine: Pediat rics (0 to 5 Years) and At-Risk Patients (6 to 64 Years) Aged Out No longer eligible b ased on patient's age to complete this topic RSV Immunizations Under 20 Months Aged Out No longer eligible based on patient's age to complete this topic
--- OUTSIDE RECORDS SUMMARY | 2024-07-21 11:42 | XMS_ITS | Encounter Summary ---
Author Organization [facility] Address [address] [place] [address]. [place], [place] [id number] [place] [address] Care Team Providers Care Supervisor Spinning Name Role Phone Hansel Camarillo MD Primary Care Provider Unavailable Encounter Details Date Type Department Care Team (Late st Contact Info) Description 05/14/2017 [place] [address] Hansel Camarillo MD Social History Tobacco Use Types Packs/Day Years [...] on filedocumented in this encounter Care Teams Supervisor Spinning Relationship Specialty Start Date End Date Hansel Camarillo MD PCP - General 10/09/14 documented as of this encounter
--- OUTSIDE RECORDS SUMMARY | 2024-07-21 11:42 | XMS_ITS | Encounter Summary ---
Author Organization [facility] Address [address] [place] [address]. [place], [place] [id number] [place] [address] Care Team Providers Care Voip Technician Name Role Phone Hansel Camarillo MD Primary Care Provider Unavailable Encounter Details Date Type Department Care Team (Late st Contact Info) Description 10/09/[address] [facility] [address] [place] [address] Lena Kc APNP Social History Tobacco Use Types Packs/Day Years Used Date Smoking Tobacco: Never Assessed Sex and Gender Information Value Date Recorded Sex Assigned at Not on file Legal Sex Male 7:05 PM CDT Gender Identity Not on file Sexual Orientation Not on file documented as of this encounter Plan of Treatment Not on file documented as of this encounter Visit Diagnoses Diagnosis Closed fracture of shaft of metacarpal bone Closed fracture of shaft of metacarpal bone(s) documented in this encounter Care Teams Voip Technician Relationship Specialty Start Date End Date Hansel Camarillo MD PCP - General 10/09/14 documented as of this encounter
== END 2024-07-14 09:42 | disposition home or self-care (01) ==
PROVIDERS: Emergency Provider Nurse Practitioner Family
DX: J01.90 Acute sinusitis, unspecified (principal)
CPT/HCPCS: 99213; G0463

== ENCOUNTER 2025-05-21 10:55 | Outpatient (CLI) | payer OTHER, SELFPAY ==
--- NOTE | ~2025-05-21 | XR_ITS ---
EXAMINATION: XR chest 2V, 05/21/2025 11:00 FEATHER SEPARATOR HISTORY: R05.3 - Chronic cough X 2 YRS W/OUT FEVER COMPARISON: No comparisons available. Technique: 2 views obtained. Findings: The lungs are clear, no effusion. No pneumothorax. Heart is normal size. Mediastinal and hilar contours are within normal limits. Bony thorax no acute abnormality. Impression: No acute cardiopulmonary abnormality. Reviewed, dictated and finalized at location P. HER SEPARATOR Impression: No acute cardiopulmonary abnormality.
--- OUTSIDE RECORDS SUMMARY | 2025-05-21 11:42 | XMS_ITS | Clinical Summary ---
Author Organization [facility] Address [address] [place] [address] Care Team Providers Care Assistant Boiler Operator Name Role Phone Unavailable Primary Care Provider [...] (1 - Male 3-dos e series) 2017 Meningococcal B Vaccine (1 o f 2 - Standard) 2018 Hepatitis C 2020 DTaP, Tdap and Td Vaccines ( 1 - Tdap) 2021 Hepatitis B Vaccines (1 of 3 - 19+ 3-dose series) 2021 COVID-19 Vaccine (1 - 2024-2 6 season) 2025 Influenza Adult (#1) 2025 Hepatitis A Vaccines Aged Out No long er eligible based on patient's age to complete this topic Meningococcal Vaccine Aged Out No tarun meg eligible based on patient's age to complete this topic Pneumococcal Vaccine: Pediat rics (0 to 5 Years) and At-Risk Patients (6 to 49 Years) Aged Out No longer eligible b ased on patient's age to complete this topic RSV Immunizations Under 20 Months Aged Out No longer eligible based on patient's age to complete this topic
--- OUTSIDE RECORDS SUMMARY | 2025-05-21 11:42 | XMS_ITS | Encounter Summary ---
Author Organization [facility] Address [address] [place] [address] Care Team Providers Care Transportation Engineer Name Role Phone Hansel Camarillo MD Primary Care Provider Unavailable Encounter Details Date Type Department Care Team (Late st Contact Info) Description 05/14/2017 Abstract [place] [address] Hansel Camarillo MD Social History Tobacco Use [...] on filedocumented in this encounter Care Teams Transportation Engineer Relationship Specialty Start Date End Date Hansel Camarillo MD PCP - General 10/09/14 documented as of this encounter
== END 2025-05-21 10:56 | disposition home or self-care (01) ==
LOC: ANHIMG 10:57
PROVIDERS: PCP Internal Medicine; Visit Provider Nurse Practitioner
DX: R05.3 Chronic cough (principal)
CPT/HCPCS: 71046